=== PATIENT | female | born 1975 | race Caucasian/White ===

== ENCOUNTER → 2017-05-18 | Outpatient (CLI) | payer BC ==
[~2017-05-18] MED LIST: ALBU1AER9 INH; FLUO40CA8 PO; FLV1 PO; MIRA1TAB3 PO; MULTTAB58 PO; NAPR-1169 PO; OXYC-57 PO; OXYC1TAB3 PO; TAMS0.4C38 PO; [UNRECOGNIZED DRUG - OTHER] SC
--- NOTE | 2017-05-18 10:29 | DIAGNOSTIC IMAGING REPORT ---
KUB CLINICAL HISTORY: N20.0 Recurrent [id number] COMPARISON STUDY: 04/29/2016 FINDINGS: A stimulator device is again visualized within the left hemipelvis. There is no pathologic bowel dilatation. There is scattered stool present throughout the colon. No definite renal or ureteral calculi are visualized. IMPRESSION: No calculi are visualized on conventional radiographic imaging. Electronically signed by: Tono Owusu M.D. 05/18/2017 10:27 AM Dictated Date/Time: 05/18/2017 10:26 AM
== END | disposition home or self-care (01) ==
LOC: C.RAD 09:32
PROVIDERS: ATTEND Internal Medicine Nephrology
DX: N20.0 Calculus of kidney (principal)

== ENCOUNTER 2024-01-30 14:32 | Inpatient (IN) ==
--- NOTE | 2024-01-30 15:23 | XRay Report ---
XR chest 1V portable HISTORY: 48 years-old Female Sepsis acute sepsis COMPARISON: 04/03/2015 TECHNIQUE: AP view of the chest FINDINGS: Cardiac silhouette is enlarged. No pneumothorax or pleural effusion. The lungs appear clear. Bones ap pear intact. IMPRESSION: No acute process. ACT 112: Negative or not required by law. The above report was generated using voice recognition software. It may contain grammatical, syntax o r spelling errors. Electronically signed by: Rusty Magaña M.D. 01/30/2024 3:21 PM
--- NOTE | 2024-01-30 15:25 | Emergency Department Note ---
History of Present Illness General Chief complaint: Dehydration Stated complaint: DEHYDRATED, PAIN WHEN URINATING, LBP Time Seen by Provider: 01/30/24 14:58 History of Present Illness Provider complaint: Fever kidney stone Onset (ago): day(s) 2 Maximum Pain Intensity: 5 48-year-old female presents emergency department for fever and kidney stone. Patient reports that she was diagnosed with kidney stone 2 days ago at an outside facility. She states she was also diagnosed with a UTI. She states she is currently on Levaquin and Bactrim. She reports that she has been having increasing fever nausea. She reports increasing dysuria. Home Medications Medication Instructions Recorded Confirmed Type albuterol sulfate 90 mcg/actuation 2 puffs inhalation Q4H PRN 02/23/19 01/30/24 History aerosol inhaler Shortness Of Breath cholecalciferol (vitamin D3) 125 5,000 units PO QPM 02/23/19 01/30/24 History mcg (5,000 unit) capsule fluoxetine 40 mg capsule See Rx Instructions .Route .COMPLEX 02/23/19 01/30/24 History folic acid 800 mcg tablet 800 mcg PO QAM 02/23/19 01/30/24 History secukinumab 150 mg/mL subcutaneous 150 mg subcut MONTHLY 02/23/19 01/30/24 History syringe fluoxetine 20 mg tablet See Rx Instructions .Route .COMPLEX 01/09/22 01/30/24 History fremanezumab-vfrm 225 mg/1.5 mL 675 mg subcut UD 01/09/22 01/30/24 History subcutaneous auto-injector (Ajovy) loratadine 10 mg tablet 10 mg PO QAM 01/09/22 01/30/24 History ubrogepant 100 mg tablet (Ubrelvy) 100 mg PO UD PRN Migraine Headache 01/09/22 01/30/24 History hydroxychloroquine 200 mg tablet 200 mg PO BID 01/30/24 01/30/24 History levofloxacin 750 mg tablet 750 mg PO DAILY 01/30/24 01/30/24 History sulfamethoxazole 800 1 tab PO BID 01/30/24 01/30/24 History mg-trimethoprim 160 mg tablet tamsulosin 0.4 mg capsule 0.4 mg PO DAILY kidney stones 01/30/24 01/30/24 History Allergies Allergy/AdvReac Type Severity Reaction Status Date / Time Penicillins Allergy Intermediate HIVES Verified 01/30/24 17:04 codeine AdvReac Intermediate CHEST PAIN Verified 01/30/24 17:04 Past Med/Surg History Problem List (Updated 01/30/24 @ 21:37 by Lucas Ford MD) Prolonged QT interval (Acute) Hypomagnesemia (Acute) Hypokalemia (Acute) Hyponatremia (Acute) UTI (urinary tract infection) (Acute) Nephrolithiasis (Acute) Medical History Recurrent nephrolithiasis Chronic back pain History of MTHFR mutation Takes folic acid Temporomandibular joint disorder Was using a bite block at night, not recently Anxiety Migraine History of COVID-19 09/2021--mild symptoms, symptoms have since resolved Exercise-induced asthma Inhaler PRN Ankylosing spondylitis On Cosentyx Recurrent UTI Surgical History History of foot surgery left plantar fasciotomy History of bladder surgery bladder stimulator History of esophagogastroduodenoscopy (EGD) History of colonoscopy History of cholecystectomy History of tooth extraction History of wisdom tooth extraction History of tonsillectomy and adenoidectomy Bariatric surgery status gastric sleeve Hx of appendectomy H/O lithotripsy H/O: hysterectomy total hyster with BSO Family History Mother Kidney stones Sister Kidney stones Other No family history of adverse response to anesthesia Denies family history of Kidney disease Social History Smoking Status: Never smoker Second Hand Exposure: No; Do You Dip or Chew Tobacco: No; Hx Alcohol Use: No Hx Substance Use: No Preferred Language: Qatari Communication Ability: Effective 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 Required: No Beliefs That Will Affect Care: None Current Living Situation: Family and Significant Other Current Living Situation Comment: Lives with fiance and 3 kids current occupational status: employed 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 Feels Safe at Home: Yes Assistive Devices: Glasses Physical Exam Vital Signs Vital Signs - 24 hr 01/30/24 14:45 01/30/24 15:15 01/30/24 15:16 Temperature 38.2 C H Temperature Source Oral Pulse Rate 120 H 110 H 122 H Pulse Rhythm Respiratory Rate 18 19 Respiratory Effort / Characteristics Non-Labored Spontaneous Respiratory Depth Normal Respiratory Pattern Regular Blood Pressure 100/68 115/77 Blood Pressure Mean 78 89 Blood Pressure Position Sitting Pulse Oximetry 97 98 Oxygen Delivery Method Room Air Sepsis Recent Fever Within 48 Hours No Sepsis New/Unexplained Change in Mental Status N/A Sepsis Action Taken by Nursing No Action Required 01/30/24 15:17 01/30/24 15:21 01/30/24 15:30 Temperature 39.5 C H Temperature Source Oral Pulse Rate 99 H 108 H Pulse Rhythm Regular Respiratory Rate 20 14 Respiratory Effort / Characteristics Respiratory Depth Respiratory Pattern Blood Pressure 125/71 Blood Pressure Mean 82 Blood Pressure Position Pulse Oximetry 98 97 Oxygen Delivery Method Room Air Sepsis Recent Fever Within 48 Hours Sepsis New/Unexplained Change in Mental Status Sepsis Action Taken by Nursing 01/30/24 16:30 01/30/24 16:43 01/30/24 16:45 Temperature 37.5 C Temperature Source Oral Pulse Rate 100 H 101 H Pulse Rhythm Respiratory Rate 15 20 Respiratory Effort / Characteristics Respiratory Depth Respiratory Pattern Blood Pressure 116/66 117/70 Blood Pressure Mean 79 85 Blood Pressure Position Pulse Oximetry 98 97 Oxygen Delivery Method Room Air Sepsis Recent Fever Within 48 Hours Sepsis New/Unexplained Change in Mental Status Sepsis Action Taken by Nursing 01/30/24 16:45 01/30/24 17:15 01/30/24 17:31 Temperature Temperature Source Pulse Rate 97 H 97 H 96 H Pulse Rhythm Respiratory Rate 22 15 16 Respiratory Effort / Characteristics Respiratory Depth Respiratory Pattern Blood Pressure 117/70 103/65 117/70 Blood Pressure Mean 88 77 88 Blood Pressure Position Pulse Oximetry 98 97 98 Oxygen Delivery Method Sepsis Recent Fever Within 48 Hours Sepsis New/Unexplained Change in Mental Status Sepsis Action Taken by Nursing 01/30/24 18:01 01/30/24 18:17 Temperature Temperature Source Pulse Rate 98 H 103 H Pulse Rhythm Respiratory Rate 21 16 Respiratory Effort / Characteristics Respiratory Depth Respiratory Pattern Blood Pressure 96/65 L 117/66 Blood Pressure Mean 77 83 Blood Pressure Position Pulse Oximetry 94 97 Oxygen Delivery Method Room Air Sepsis Recent Fever Within 48 Hours Sepsis New/Unexplained Change in Mental Status Sepsis Action Taken by Nursing Physical Exam GENERAL: She is oriented to person, place, and time. She appears well-developed and well-nourished. She does not appear distressed. HENT: Exam performed. -Head: Normocephalic and atraumatic. -Right Ear: External ear normal. No mastoid erythema -Left Ear: External ear normal. No mastoid erythema -Mouth/Throat: The oropharynx is clear and moist. No trismus in the jaw. No dental abscesses or uvula swelling. No oropharyngeal exudate or tonsillar abscesses. EYES: Conjunctivae and EOM are normal.Right eye exhibits no discharge. Left eye exhibits no discharge. No scleral icterus. NECK: Normal range of motion. Neck supple. No JVD present. No tracheal deviation and normal range of motion present. CV: Tachycardic rate, regular rhythm, normal heart sounds and intact distal pulses. There is no peripheral edema. Palpable radial pulses bue. PULM/CHEST: Effort normal and breath sounds normal. No respiratory distress. No stridor. She has no wheezes. She has no rales. -Chest Wall: She exhibits no tenderness. ABD: The abdomen is soft. Bowel sounds are normal. She has no distension. No mass is present. There is no tenderness. There is no rebound, no guarding, no Gomez's sign and no tenderness at McBurney's point. Rovsig negative MUSC/SKEL: Normal range of motion. There is no peripheral edema, tenderness or deformity. NEURO: Motor and sensation grossly intact. SKIN: Skin is warm and dry. She is not diaphoretic. PSYCH: She has a normal mood and affect. Behavior is normal. Judgment and thought content normal. Course Course 1458: The patient was evaluated in room B8. A complete history and physical exam was performed Cardiac monitoring: An order was placed for continuous cardiac monitoring. The monitor shows a rate of 110 with sinus tachycardia rhythm interpreted by me Patient febrile and tachycardic. Sepsis protocols initiated. 1600: Cefepime ordered for the patient after discussion with pharmacy about which antibiotic to give the patient given her currently being on Levaquin and Bactrim. 1700:Labs show white blood cell count of 4.77. Platelet count 97. VBG within normal limits. Sodium 126. No seizure-like activity and no focal neurological deficits. Sodium repletion started with normal saline. No need for hypertonic saline at this time. Potassium 3.1. Magnesium 1.4. AST 293 ALT 210 alkaline phosphatase and bilirubin within normal limits. Procalcitonin 0.76. Urinalysis does appear infected. CT of the abdomen pelvis shows no ureteral stones. Patient will be admitted to the [facility] hospitalist team. Administered Medications Acetaminophen (Acetaminophen 325 Mg Tab) 650 mg PO Q4H PRN PRN Reason: fever Stop: 02/29/24 20:10 Last Admin: 01/30/24 20:21 Dose: 650 mg Documented By: NEREIDA Potassium Chloride/Sodium Chloride (Normal Saline W/20 Meq Kcl) 20 meq in 1,000 mls @ 100 mls/hr IV .Q10H VIRIDIANA; Protocol Stop: 02/29/24 18:29 Last Admin: 01/30/24 20:24 Dose: 100 mls/hr Documented By: NEREIDA Potassium Phosphate 30 mmol/ (Sodium Chloride) 510 mls @ 88 mls/hr IV ONE ONE Stop: 01/31/24 02:02 Last Admin: 01/30/24 21:04 Dose: 88 mls/hr Documented By: NEREIDA Vancomycin HCl 2,000 mg/ (Sodium Chloride) 540 mls @ 200 mls/hr IV NOW ONE Stop: 01/30/24 23:11 Last Admin: 01/30/24 21:04 Dose: 200 mls/hr Documented By: NEREIDA Discontinued Medications Sodium Chloride (Nss) 1,000 mls @ 999 mls/hr IV .Q1H1M VIRIDIANA Stop: 01/30/24 17:00 Last Infusion: 01/30/24 17:51 Dose: Infused Documented By: Admin: 01/30/24 16:42 Dose: 999 mls/hr Documented By: Infusion: 01/30/24 16:33 Dose: Infused Documented By: Admin: 01/30/24 15:32 Dose: 999 mls/hr Documented By: SALENA Acetaminophen (Ofirmev) 1,000 mg in 100 mls @ 400 mls/hr IV NOW STA Stop: 01/30/24 15:12 Last Infusion: 01/30/24 15:47 Dose: Infused Documented By: Admin: 01/30/24 15:32 Dose: 400 mls/hr Documented By: SALENA Cefepime HCl (Maxipime) 2,000 mg in 20 mls @ 5 mls/min IV NOW STA; Protocol Stop: 01/30/24 16:02 Last Admin: 01/30/24 16:16 Dose: 5 mls/min Documented By: SRINI Magnesium Sulfate/Dextrose (Magnesium Sulfate / D5w) 1 gm in 100 mls @ 100 mls/hr IV Q1H [facility] Stop: 01/30/24 18:40 Last Infusion: 01/30/24 18:55 Dose: Infused Documented By: Admin: 01/30/24 17:53 Dose: 100 mls/hr Documented By: Infusion: 01/30/24 17:51 Dose: Infused Documented By: Admin: 01/30/24 16:52 Dose: 100 mls/hr Documented By: SALENA Piperacillin Sod/Tazobactam (Sod 4.5 gm/ Dextrose) 100 mls @ 200 mls/hr IV NOW ONE; Protocol Stop: 01/30/24 20:29 Last Admin: 01/30/24 20:43 Dose: 200 mls/hr Documented By: NEREIDA Ondansetron HCl (Ondansetron Inj 2 Mg/Ml 2 Ml Vial) Confirm Administered Dose 4 mg .ROUTE .STK-MED ONE Stop: 01/30/24 16:22 Last Admin: 01/30/24 16:22 Dose: 4 mg Documented By: SRINI Potassium Chloride (Potassium Chloride Crtab 20 Meq Tabcr) 40 meq PO NOW STA Stop: 01/30/24 17:43 Last Admin: 01/30/24 18:50 Dose: Not Given Documented By: NEREIDA Medical Decision Making Laboratory Data Attestation: I reviewed the patient's lab results. 01/30/24 15:08 01/30/24 15:08 Lab Results 01/30/24 01/30/24 01/30/24 Range/Units 15:05 15:08 15:22 WBC 4.77 L (4.8-10.8) K/ul RBC 4.94 (4.20-5.40) M/uL Hgb 13.2 (12.0-16.0) g/dl Hct 39.7 (37.0-47.0) % MCV 80.4 (80.0-100.0) fL MCH 26.7 (25.0-34.0) pg MCHC 33.2 (32.0-36.0) g/dL RDW Std Deviation 37.9 (36.4-46.3) fL RDW Coeff of Evangelina 13.1 (11.5-14.5) % Plt Count 97 L (130-400) K/uL MPV 11.1 (9.4-12.4) fL Immature Gran % (Auto) 0.4 % Neut % (Auto) 85.7 % Lymph % (Auto) 7.8 % [place] % (Auto) 4.4 % Eos % (Auto) 1.5 % Baso % (Auto) 0.2 % Neut # (Auto) 4.09 (1.40-6.50) K/uL Lymph # (Auto) 0.37 L (1.20-3.40) K/uL [place] # (Auto) 0.21 (0.11-0.59) K/uL Eos # (Auto) 0.07 (0.00-0.50) K/uL Baso # (Auto) 0.01 (0.00-0.20) K/uL Immature Gran # (Auto) 0.02 (0.01-0.20) K/uL Platelet Estimate Decreased L (Normal) PT 11.6 (9.0-12.0) Seconds INR 1.1 (0.9-1.1) APTT 29 (21-31) Seconds PTT Ratio 1.1 VBG pH (7.36-7.41) VBG pCO2 (38-50) mmHg VBG pO2 mmHg VBG HCO3 mmol/L VBG O2 Saturation % VBG Base Excess mEq/L Sodium 126 L (136-145) mmol/L Potassium 3.1 L (3.5-5.1) mmol/L Chloride 92 L (98-107) mmol/L Carbon Dioxide 26 (21-32) mmol/L Anion Gap 8 (3-11) BUN 14 (6-23) mg/dl Creatinine 1.08 (0.6-1.2) mg/dl Est Cr Clr Drug Dosing 80.5 ml/min Est GFR ( Amer) 70.3 ml/min Est GFR (Non-Af Amer) 60.7 ml/min BUN/Creatinine Ratio 13.0 (10-20) Glucose 117 H (70-99(Fasting)) mg/dl Lactate 2.0 (0.4-2.0) mmol/L Calcium 8.8 (8.6-10.3) mg/dl Phosphorus 1.3 L* (2.5-4.9) mg/dl Magnesium 1.4 L (1.7-2.4) mg/dl Total Bilirubin 0.5 (0.2-1.0) mg/dl Direct Bilirubin 0.1 (0-0.2) mg/dl AST 293 H (13-39) U/L ALT 210 H (7-52) U/L Alkaline Phosphatase 90 (34-104) U/L Troponin I High Sens 10.1 (0-14) pg/ml Total Protein 6.8 (6.0-8.3) gm/dl Albumin 3.7 (3.4-5.0) gm/dl Lipase 10 L (11-82) U/L Procalcitonin 0.76 H (0-0.5) ng/ml Urine Color Dark Yellow Urine Appearance Cloudy A (Clear) Urine pH 6.5 (4.5-7.5) Ur Specific [place] 1.032 H (1.000-1.030) Urine Protein 2+ H (Negative) Urine Glucose (UA) Negative (Negative) Urine Ketones Trace H (Negative) Urine Blood 1+ H (Negative) Urine Nitrite Negative (Negative) Urine Bilirubin 1+ H (Negative) Urine Urobilinogen Negative (Negative) Ur Leukocyte Esterase 2+ H (Negative) Urine WBC (Auto) >50 H (0-5) /hpf Urine RBC (Auto) 11-20 H (0-2) /hpf U Hyaline Cast (Auto) 11-20 H (0-2) /lpf U Epithel Cells (Auto) 6-10 H (0-2) /hpf Urine Bacteria (Auto) 1+ H (None Seen) Urine Mucus Present A (None Prsent) SARS-CoV-2 (PCR) NEGATIVE (Negative) Influenza Type A (PCR) Negative (Neg) Influenza Type B (PCR) Negative (Neg) RSV (RT-PCR) Negative (Neg) 01/30/24 Range/Units 18:00 WBC (4.8-10.8) K/ul RBC (4.20-5.40) M/uL Hgb (12.0-16.0) g/dl Hct (37.0-47.0) % MCV (80.0-100.0) fL MCH (25.0-34.0) pg MCHC (32.0-36.0) g/dL RDW Std Deviation (36.4-46.3) fL RDW Coeff of Evangelina (11.5-14.5) % Plt Count (130-400) K/uL MPV (9.4-12.4) fL Immature Gran % (Auto) % Neut % (Auto) % Lymph % (Auto) % [place] % (Auto) % Eos % (Auto) % Baso % (Auto) % Neut # (Auto) (1.40-6.50) K/uL Lymph # (Auto) (1.20-3.40) K/uL [place] # (Auto) (0.11-0.59) K/uL Eos # (Auto) (0.00-0.50) K/uL Baso # (Auto) (0.00-0.20) K/uL Immature Gran # (Auto) (0.01-0.20) K/uL Platelet Estimate (Normal) PT (9.0-12.0) Seconds INR (0.9-1.1) APTT (21-31) Seconds PTT Ratio VBG pH 7.35 L (7.36-7.41) VBG pCO2 43 (38-50) mmHg VBG pO2 36 mmHg VBG HCO3 24 mmol/L VBG O2 Saturation 67.3 % VBG Base Excess -2.0 mEq/L Sodium (136-145) mmol/L Potassium (3.5-5.1) mmol/L Chloride (98-107) mmol/L Carbon Dioxide (21-32) mmol/L Anion Gap (3-11) BUN (6-23) mg/dl Creatinine (0.6-1.2) mg/dl Est Cr Clr Drug Dosing ml/min Est GFR ( Amer) ml/min Est GFR (Non-Af Amer) ml/min BUN/Creatinine Ratio (10-20) Glucose (70-99(Fasting)) mg/dl Lactate (0.4-2.0) mmol/L Calcium (8.6-10.3) mg/dl Phosphorus (2.5-4.9) mg/dl Magnesium (1.7-2.4) mg/dl Total Bilirubin (0.2-1.0) mg/dl Direct Bilirubin (0-0.2) mg/dl AST (13-39) U/L ALT (7-52) U/L Alkaline Phosphatase (34-104) U/L Troponin I High Sens (0-14) pg/ml Total Protein (6.0-8.3) gm/dl Albumin (3.4-5.0) gm/dl Lipase (11-82) U/L Procalcitonin (0-0.5) ng/ml Urine Color Urine Appearance (Clear) Urine pH (4.5-7.5) Ur Specific [place] (1.000-1.030) Urine Protein (Negative) Urine Glucose (UA) (Negative) Urine Ketones (Negative) Urine Blood (Negative) Urine Nitrite (Negative) Urine Bilirubin (Negative) Urine Urobilinogen (Negative) Ur Leukocyte Esterase (Negative) Urine WBC (Auto) (0-5) /hpf Urine RBC (Auto) (0-2) /hpf U Hyaline Cast (Auto) (0-2) /lpf U Epithel Cells (Auto) (0-2) /hpf Urine Bacteria (Auto) (None Seen) Urine Mucus (None Prsent) SARS-CoV-2 (PCR) (Negative) Influenza Type A (PCR) (Neg) Influenza Type B (PCR) (Neg) RSV (RT-PCR) (Neg) Imaging Data Attestation: I personally reviewed and interpreted this imaging study as follows: My Impression: Chest x-ray negative. Airway clear. No pneumothorax. No consolidation. No cardiomegaly or cephalization.. No free air under the diaphragm. No fractures of the skeletal structures. Radiologist's Impression: Chest X-Ray 01/30/24 14:59 XR chest 1V portable HISTORY: 48 years-old Female Sepsis acute sepsis COMPARISON: 04/03/2015 TECHNIQUE: AP view of the chest FINDINGS: Cardiac silhouette is enlarged. No pneumothorax or pleural effusion. The lungs appear clear. Bones appear intact. IMPRESSION: No acute process. ACT 112: Negative or not required by law. The above report was generated using voice recognition software. It may contain grammatical, syntax or spelling errors. Electronically signed by: Rusty Magaña M.D. 01/30/2024 3:21 PM Abdomen/Pelvis CT 01/30/24 15:[address] WITHOUT CONTRAST HISTORY: Acute fever with bilateral flank pain fever dysuria kidney stone TECHNIQUE: Multiaxial CT images of the abdomen and pelvis were performed without contrast. A dose lowering technique was utilized adhering to the principles of ALARA. COMPARISON STUDY: Outside hospital CT 12/26/2021 FINDINGS: Mild subsegmental bibasilar groundglass densities are likely atelectatic. No free air. The unenhanced spleen measures 13.6 cm. Hepatic steatosis. No evidence of cirrhosis or suspicious mass. 3.7 cm cyst of the inferior right hepatic lobe. Cholecystectomy with likely postsurgical biliary ductal dilation. There is increased attenuation of the medullary pyramids. There are a few nonobstructing calculi in the kidneys measuring up to 4 mm bilaterally. No ureteral calculi or hydronephrosis. Decompressed bladder with wall thickening. Hysterectomy. No abdominal aortic aneurysm or lymphadenopathy. Small hiatal hernia. Operative changes of the stomach. No bowel obstruction or bowel wall thickening. No CT evidence of acute appendicitis. No acute fracture. IMPRESSION: 1. 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 2. No ureteral calculi or hydronephrosis. 3. No bowel obstruction or bowel wall thickening. 4. Additional incidental findings as above. ACT 112: Negative or not required by law. The above report was generated using voice recognition software. It may contain grammatical, syntax or spelling errors. Electronically signed by: Rusty Magaña M.D. 01/30/2024 4:[address] 01/30/24 15:05 CT head/brain wo con CLINICAL HISTORY: 48 years-old Female with weakness. Acute weakness TECHNIQUE: Multiple axial CT images of the head were obtained without contrast. A dose lowering technique was utilized adhering to the principles of ALARA. CT DOSE: 2111.96 mGy.cm COMPARISON: None. FINDINGS: No acute intracranial hemorrhage, midline shift, intracranial mass, hydrocephalus, territorial ischemia or abnormal extra-axial collection. The calvarium is intact. The paranasal sinuses, mastoid air cells, and middle ear cavities are clear. IMPRESSION: No acute intracranial abnormality or calvarial fracture. ACT 112: Negative or not required by law. The above report was generated using voice recognition software. It may contain grammatical, syntax or spelling errors. Electronically signed by: Rusty Magaña M.D. 01/30/2024 4:23 PM ECG Data Attestation: I personally reviewed and interpreted this ECG as follows: Additional Comments: EKG #1 at 1527: Sinus rhythm with a rate of 112. [place] 126 QRS [address] elevation or ST depression. EKG #2 at 1645: Sinus rhythm with a rate of 98. [place] 92 QRS [address] elevation or ST depression. [facility] Narrative 1458: The patient was evaluated in room B8. A complete history and physical exam was performed Cardiac monitoring: An order was placed for continuous cardiac monitoring. The monitor shows a rate of 110 with sinus tachycardia rhythm interpreted by me Patient febrile and tachycardic. Sepsis protocols initiated. 1600: Cefepime ordered for the patient after discussion with pharmacy about which antibiotic to give the patient given her currently being on Levaquin and Bactrim. 1700:Labs show white blood cell count of 4.77. Platelet count 97. VBG within normal limits. Sodium 126. No seizure-like activity and no focal neurological deficits. Sodium repletion started with normal saline. No need for hypertonic saline at this time. Potassium 3.1. Magnesium 1.4. AST 293 ALT 210 alkaline phosphatase and bilirubin within normal limits. Procalcitonin 0.76. Urinalysis does appear infected. CT of the abdomen pelvis shows no ureteral stones. Patient will be admitted to the [facility]ist team. Impression & Plan Hyponatremia, Nephrolithiasis, UTI (urinary tract infection), Hypokalemia, Hypomagnesemia, Prolonged QT interval Discharge Plan Visit Data Chief Complaint: Dehydration Stated Complaint: DEHYDRATED, PAIN WHEN URINATING, LBP ED Provider: Lucas Ford Discharge Problem: Hyponatremia, Nephrolithiasis, UTI (urinary tract infection), Hypokalemia, Hypomagnesemia, Prolonged QT interval Patient Disposition: Admitted As Inpatient Discharge Instructions Interventions: ED Discharge Assessment Last Done: 01/30/24 21:28
[2024-01-30] MEDS: SODIUM CHLORIDE 0.9% 1,000 ML IV SCH (15:32)
[2024-01-30] MEDS: ACETAMINOPHEN 1,000 MG/100 ML VIAL IV STA (15:32)
[2024-01-30 15:47] LABS: Albumin Level 3.7 gm/dl (3.4-5.0); Bilirubin Direct 0.1 mg/dl (0-0.2); Bilirubin,Total 0.5 mg/dl (0.2-1.0); Calcium 8.8 mg/dl (8.6-10.3); Creatinine Clr Calc Pharmacy 80.5 ml/min; Est GFR (African American) 70.3 ml/min; Est GFR (Non-African American) 60.7 ml/min; Magnesium 1.4 mg/dl (1.7-2.4); Potassium 3.1 mmol/L (3.5-5.1); Total Protein 6.8 gm/dl (6.0-8.3)
[2024-01-30 15:51] LABS: Appearance Urine Cloudy (Clear); Bacteria Urine Automated 1+ (None Seen); Bilirubin Urine 1+ (Negative); Blood Urine 1+ (Negative); Color Urine Dark Yellow; Glucose Urine UA Negative (Negative); Ketones Urine Trace (Negative); Leukocyte Esterase Urine 2+ (Negative); Mucus Urine Present (None Prsent); Nitrite Urine Negative (Negative); Protein Urine 2+ (Negative); Specific Gravity Urine 1.032 (1.000-1.030); Urobilinogen Urine Negative (Negative); WBC Urine Automated >50 /hpf (0-5); pH Urine 6.5 (4.5-7.5)
[2024-01-30 15:53] LABS: Troponin I High Sensitivity 10.1 pg/ml (0-14)
[2024-01-30 15:57] LABS: INR 1.1 (0.9-1.1); Partial Thromboplastin Ratio 1.1; Partial Thromboplastin Time 29 Seconds (21-31); Prothrombin Time 11.6 Seconds (9.0-12.0)
[2024-01-30 16:04] LABS: Basophils # (auto) 0.01 K/uL (0.00-0.20); Basophils % (auto) 0.2 %; Eosinophils # (auto) 0.07 K/uL (0.00-0.50); Eosinophils % (auto) 1.5 %; Hematocrit (blood only) 39.7 % (37.0-47.0); Hemoglobin 13.2 g/dl (12.0-16.0); Immature Granulocytes # (auto) 0.02 K/uL (0.01-0.20); Immature Granulocytes % (auto) 0.4 %; Lymphocytes # (auto) 0.37 K/uL (1.20-3.40); Lymphocytes % (auto) 7.8 %; Mean Corpuscular Hemoglobin 26.7 pg (25.0-34.0); Mean Corpuscular Hgb Conc 33.2 g/dL (32.0-36.0); Mean Corpuscular Volume 80.4 fL (80.0-100.0); Mean Platelet Volume 11.1 fL (9.4-12.4); Monocytes # (auto) 0.21 K/uL (0.11-0.59); Monocytes % (auto) 4.4 %; Neutrophils # (auto) 4.09 K/uL (1.40-6.50); Neutrophils % (auto) 85.7 %; Platelet Count 97 K/uL (130-400); Platelet Estimate Decreased (Normal); RDW Coefficient of Variation 13.1 % (11.5-14.5); RDW Standard Deviation 37.9 fL (36.4-46.3); Red Blood Count 4.94 M/uL (4.20-5.40); White Blood Count 4.77 K/ul (4.8-10.8)
[2024-01-30] MEDS: CEFEPIME 2,000 MG/20 ML VIAL IV STA (16:16)
[2024-01-30] MEDS: ONDANSETRON INJ 2 MG/ML 2 ML VIAL ONE (16:22)
--- NOTE | 2024-01-30 16:24 | CT Scan Report ---
CT head/brain wo con CLINICAL HISTORY: 48 years-old Female with weakness. Acute weakness TECHNIQUE: Multiple axial CT images of the head were obtained without contrast. A dose lowering tech nique was utilized adhering to the principles of ALARA. CT DOSE: 2111.96 mGy.cm COMPARISON: None. FINDINGS: No acute intracranial hemorrhage, midline shift, intracranial mass, hydrocephalus, territorial ischem ia or abnormal extra-axial collection. The calvarium is intact. The paranasal sinuses, mastoid air cells, and middle ear cavities are clear . IMPRESSION: No acute intracranial abnormality or calvarial fracture. ACT 112: Negative or not required by law. The above report was generated using voice recognition software. It may contain grammatical, syntax o r spelling errors. Electronically signed by: Rusty Magaña M.D. 01/30/2024 4:23 PM
[2024-01-30 16:28] LABS: Influenza A virus by PCR Negative (Neg); Influenza B virus by PCR Negative (Neg); RSV by PCR Negative (Neg); SARS CoV2 RNA(COVID-19) Ceph NEGATIVE (Negative)
--- NOTE | 2024-01-30 16:38 | CT Scan Report ---
ABDOMEN AND PELVIS CT WITHOUT CONTRAST HISTORY: Acute fever with bilateral flank pain fever dysuria kidney stone TECHNIQUE: Multiaxial CT images of the abdomen and pelvis were performed without contrast. A dose lo wering technique was utilized adhering to the principles of ALARA. COMPARISON STUDY: Outside hospital CT 12/26/2021 FINDINGS: Mild subsegmental bibasilar groundglass densities are likely atelectatic. No free air. The unenhanced spleen measures 13.6 cm. Hepatic steatosis. No evidence of cirrhosis or suspicious mass. 3 .7 cm cyst of the inferior right hepatic lobe. Cholecystectomy with likely postsurgical biliary ducta l dilation. There is increased attenuation of the medullary pyramids. There are a few nonobstructing calculi in t he kidneys measuring up to 4 mm bilaterally. No ureteral calculi or hydronephrosis. Decompressed blad mariama with wall thickening. Hysterectomy. No abdominal aortic aneurysm or lymphadenopathy. Small hiatal hernia. Operative changes of the stomach. No bowel obstruction or bowel wall thickening. No CT evidence of acute appendicitis. No acute fracture. IMPRESSION: 1. 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 2. No ureteral calculi or hydronephrosis. 3. No bowel obstruction or bowel wall thickening. 4. Additional incidental findings as above. ACT 112: Negative or not required by law. The above report was generated using voice recognition software. It may contain grammatical, syntax o r spelling errors. Electronically signed by: Rusty Magaña M.D. 01/30/2024 4:35 PM
[2024-01-30] MEDS: MAGNESIUM SULFATE / D5W 1 GM/100 ML BAG IV SCH ×2 (16:52→22:20)
--- NOTE | 2024-01-30 17:11 | History & Physical Report ---
Date of Service January 30, 2024 History of Present Illness Primary Care Provider: Molly Krishna Ms. Hawley presents to the ED with complains of fever and dysuria. Patient was seen at [facility] and diagnosed with a UTI and started on Levaquin and Bactrim and released from the ED. Additional PMH includes: HTN, depression. Here today in the ED, no leukocytosis, hyponatremic 126, hypokalemic 3.1, hypomag 1.4. lactate borderline elevated at 2.0. LFTs elevated from chronic alcohol use AST 293, ALT 210. Procalcitonin 0.76. Patient denies LOMBARDO, dizziness, SOB, chest pain, dizziness, palpitations, N/V/D, recent falls or trauma. Patient will be admitted for further evaluation and management. Please see A?P for further details. Allergies Allergy/AdvReac Type Severity Reaction Status Date / Time Penicillins Allergy Intermediate HIVES Verified 01/30/24 17:04 codeine AdvReac Intermediate CHEST PAIN Verified 01/30/24 17:04 Home Medications Medication Instructions Recorded Confirmed Type albuterol sulfate 90 mcg/actuation 2 puffs inhalation Q4H PRN 02/23/19 01/30/24 History aerosol inhaler Shortness Of Breath cholecalciferol (vitamin D3) 125 5,000 units PO QPM 02/23/19 01/30/24 History mcg (5,000 unit) capsule fluoxetine 40 mg capsule See Rx Instructions .Route .COMPLEX 02/23/19 01/30/24 History folic acid 800 mcg tablet 800 mcg PO QAM 02/23/19 01/30/24 History secukinumab 150 mg/mL subcutaneous 150 mg subcut MONTHLY 02/23/19 01/30/24 History syringe fluoxetine 20 mg tablet See Rx Instructions .Route .COMPLEX 01/09/22 01/30/24 History fremanezumab-vfrm 225 mg/1.5 mL 675 mg subcut UD 01/09/22 01/30/24 History subcutaneous auto-injector (Ajovy) loratadine 10 mg tablet 10 mg PO QAM 01/09/22 01/30/24 History ubrogepant 100 mg tablet (Ubrelvy) 100 mg PO UD PRN Migraine Headache 01/09/22 01/30/24 History hydroxychloroquine 200 mg tablet 200 mg PO BID 01/30/24 01/30/24 History levofloxacin 750 mg tablet 750 mg PO DAILY 01/30/24 01/30/24 History sulfamethoxazole 800 1 tab PO BID 01/30/24 01/30/24 History mg-trimethoprim 160 mg tablet tamsulosin 0.4 mg capsule 0.4 mg PO DAILY kidney stones 01/30/24 01/30/24 History Past Med/Surg History Problem List (Updated 01/30/24 @ 17:42 by Tae Ellison MD) Hypomagnesemia Hypokalemia Hyponatremia UTI (urinary tract infection) Nephrolithiasis Medical History Recurrent nephrolithiasis Chronic back pain History of MTHFR mutation Takes folic acid Temporomandibular joint disorder Was using a bite block at night, not recently Anxiety Migraine History of COVID-19 09/2021--mild symptoms, symptoms have since resolved Exercise-induced asthma Inhaler PRN Ankylosing spondylitis On Cosentyx Recurrent UTI Surgical History History of foot surgery left plantar fasciotomy History of bladder surgery bladder stimulator History of esophagogastroduodenoscopy (EGD) History of colonoscopy History of cholecystectomy History of tooth extraction History of wisdom tooth extraction History of tonsillectomy and adenoidectomy Bariatric surgery status gastric sleeve Hx of appendectomy H/O lithotripsy H/O: hysterectomy total hyster with BSO Family History Mother Kidney stones Sister Kidney stones Other No family history of adverse response to anesthesia Denies family history of Kidney disease Social History Smoking Status: Never smoker Second Hand Exposure: No; Do You Dip or Chew Tobacco: No; Hx Alcohol Use: No Hx Substance Use: No Preferred Language: Ukrainian Communication Ability: Effective Fire Technician Required: No Beliefs That Will Affect Care: None Current Living Situation: Family and Significant Other Current Living Situation Comment: Lives with fiance and 3 kids current occupational status: employed 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
--- NOTE | 2024-01-30 17:43 | History & Physical Report ---
Date of Service January 30, 2024 Assessment & Plan (1) UTI (urinary tract infection): (2) Hyponatremia: (3) Hypomagnesemia: (4) Hypokalemia: (5) Nephrolithiasis: (6) Ankylosing spondylitis: Admission and Anticipated Discharge Date Admission Date: 48 year old female with h/o ankylosing spondylitis who presented to the ED with ongoing symptoms of fever, N/V, dysuria for past 12 days. Recently completed course of cipro for a week followed by levaquin and bactrim for past [address] A/P 1. 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 2. No ureteral calculi or hydronephrosis. 3. No bowel obstruction or bowel wall thickening. 4. Additional incidental findings as above. UTI r/o bacteremia r/o infected stones- Ongoing symptoms for past 12 days despit e course of antibiotics and evaluated at outside hospital. Chart says penicillin allergy but she says she gets amoxicillin regularly for dental work last used 6 months back. UA s/o UTI, procal 0.76, CT A/P with non obstructing stones. Will start on zosyn pending final culture results. States this is her first UTI although she had 30+ stones and required lithotripsy x2 in the past. Follow blood and urine clx results. Denies h/o MRSA. If continues to have fever or hypotension, add vancomycin. Might need ID eval. N/V- in setting of above. IVF, antiemetics prn, clear liquid diet- advance as tolerated Transaminitis- ?in setting of above- recheck in am Hypokalemia- repleted, recheck in am Hyponatremia- on IVF. Recheck later tonight at 10 pm to ensure correcting in appropriate direction Hypomagnesemia- repleted, recheck in am Hypophosphatemia- labs pending Thrombocytopenia- recheck in am Renal stones- OP follow up with urology Ankylosing spondylitis- on hydroxychloroquine, secukinumab, folic acid. Hold in setting of infection. DVT ppx- sc lovenox Dispo- Medsurg tele Updated at bedside Time spent- approx 76 mins History of Present Illness Chief Complaint: fever, N/V, dysuria Primary Care Provider: Molly Krishna 48 year old female with h/o ankylosing spondylitis who presented to the ED with ongoing symptoms of fever, N/V, dysuria for past 12 days. 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 States the Thursday prior, she had dysuria for which her colleague prescribed her cipro which she took for 7 days but she continued to have dysuria with intermittent fever, chills and N/V. She went to [facility] ER 2 days back where she was sent home with Levaquin and Bactrim, which did not help her symptoms and she presented to our ED today. States no IV antibiotics were given there and no blood or urine cultures were sent. In the ED, she was febrile to 39.5 but vitals otherwise stable. Procal 0.76. UA suggestive of UTI. Labs with multiple electrolyte abnormalities. CT with non obstructing bilateral nephrolithiasis. She was given IVF and cefepime and hospitalist service consulted for further management. She was sitting comfortably in bed during my encounter, somewhat sick. She was given po potassium for hypokalemia but she threw up. She does not smoke or drink alcohol. States she is fine with penicillins. She takes amoxicillin for dental prophylaxis, last used 6 months back and without any issues. Allergies Allergy/AdvReac Type Severity Reaction Status Date / Time Penicillins Allergy Intermediate HIVES Verified 01/30/24 17:04 codeine AdvReac Intermediate CHEST PAIN Verified 01/30/24 17:04 Home Medications Medication Instructions Recorded Confirmed Type albuterol sulfate 90 mcg/actuation 2 puffs inhalation Q4H PRN 02/23/19 01/30/24 History aerosol inhaler Shortness Of Breath cholecalciferol (vitamin D3) 125 5,000 units PO QPM 02/23/19 01/30/24 History mcg (5,000 unit) capsule fluoxetine 40 mg capsule See Rx Instructions .Route .COMPLEX 02/23/19 01/30/24 History folic acid 800 mcg tablet 800 mcg PO QAM 02/23/19 01/30/24 History secukinumab 150 mg/mL subcutaneous 150 mg subcut MONTHLY 02/23/19 01/30/24 History syringe fluoxetine 20 mg tablet See Rx Instructions .Route .COMPLEX 01/09/22 01/30/24 History fremanezumab-vfrm 225 mg/1.5 mL 675 mg subcut UD 01/09/22 01/30/24 History subcutaneous auto-injector (Ajovy) loratadine 10 mg tablet 10 mg PO QAM 01/09/22 01/30/24 History ubrogepant 100 mg tablet (Ubrelvy) 100 mg PO UD PRN Migraine Headache 01/09/22 01/30/24 History hydroxychloroquine 200 mg tablet 200 mg PO BID 01/30/24 01/30/24 History levofloxacin 750 mg tablet 750 mg PO DAILY 01/30/24 01/30/24 History sulfamethoxazole 800 1 tab PO BID 01/30/24 01/30/24 History mg-trimethoprim 160 mg tablet tamsulosin 0.4 mg capsule 0.4 mg PO DAILY kidney stones 01/30/24 01/30/24 History Past Med/Surg History Problem List Hypomagnesemia Hypokalemia Hyponatremia UTI (urinary tract infection) Nephrolithiasis Medical History Recurrent nephrolithiasis Chronic back pain History of MTHFR mutation Takes folic acid Temporomandibular joint disorder Was using a bite block at night, not recently Anxiety Migraine History of COVID-19 09/2021--mild symptoms, symptoms have since resolved Exercise-induced asthma Inhaler PRN Ankylosing spondylitis On Cosentyx Recurrent UTI Surgical History History of foot surgery left plantar fasciotomy History of bladder surgery bladder stimulator History of esophagogastroduodenoscopy (EGD) History of colonoscopy History of cholecystectomy History of tooth extraction History of wisdom tooth extraction History of tonsillectomy and adenoidectomy Bariatric surgery status gastric sleeve Hx of appendectomy H/O lithotripsy H/O: hysterectomy total hyster with BSO Family History Mother Kidney stones Sister Kidney stones Other No family history of adverse response to anesthesia Denies family history of Kidney disease Social History Smoking Status: Never smoker Second Hand Exposure: No; Do You Dip or Chew Tobacco: No; Hx Alcohol Use: No Hx Substance Use: No Preferred Language: Syrian Communication Ability: Effective Clinical Molecular Geneticist Required: No Beliefs That Will Affect Care: None Current Living Situation: Family and Significant Other Current Living Situation Comment: Lives with fiance and 3 kids current occupational status: employed 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 Feels Safe at Home: Yes Assistive Devices: Glasses Review of Systems Review of Systems: All systems reviewed & are unremarkable except as noted in Subjective Physical Exam Physical Exam: General: Sitting comfortably in bed, not in distress, on room air HEENT: EOMI, TRACEY, MMM Chest: Clear breath sounds bilaterally, no wheezes or crackles CVS: Regular rate and rhythm, normal heart sounds, no murmur Abdomen: Soft, non tender, not distended, normal bowel sounds Neuro: Awake, alert, oriented, conversing well, non focal Extremities: No cyanosis, clubbing or edema No CVA tenderness Results & Data Results & Data Vital Signs (Past 12 Hours) Vital Signs Temp Pulse Resp BP Pulse Ox O2 Del Method 01/30/24 17:15 97 H 15 103/65 97 01/30/24 16:45 97 H 22 117/70 98 01/30/24 16:45 101 H 20 117/70 97 Room Air 01/30/24 16:43 37.5 C 01/30/24 16:30 100 H 15 116/66 98 01/30/24 15:30 108 H 14 125/71 97 01/30/24 15:21 39.5 C H 01/30/24 15:17 99 H 20 98 Room Air 01/30/24 15:16 122 H 01/30/24 15:15 110 H 19 115/77 98 01/30/24 14:45 38.2 C H 120 H 18 100/68 97 Room Air Laboratory Results Short CBC 01/30/24 Range/Units 15:08 WBC 4.77 L (4.8-10.8) K/ul Hgb 13.2 (12.0-16.0) g/dl Hct 39.7 (37.0-47.0) % Plt Count 97 L (130-400) K/uL BMP 01/30/24 15:08 Sodium 126 L Potassium 3.1 L Chloride 92 L Carbon Dioxide 26 BUN 14 Creatinine 1.08 Glucose 117 H Calcium 8.8 Liver Function 01/30/24 Range/Units 15:08 Total Bilirubin 0.5 (0.2-1.0) mg/dl Direct Bilirubin 0.1 (0-0.2) mg/dl AST 293 H (13-39) U/L ALT 210 H (7-52) U/L Alkaline Phosphatase 90 (34-104) U/L Albumin 3.7 (3.4-5.0) gm/dl Urine 01/30/24 Range/Units 15:05 Urine Color Dark Yellow Urine Appearance Cloudy A (Clear) Urine pH 6.5 (4.5-7.5) Ur Specific [place] 1.032 H (1.000-1.030) Urine Protein 2+ H (Negative) Urine Glucose (UA) Negative (Negative) Diagnostic Findings Chest X-Ray 01/30/24 14:59 XR chest 1V portable HISTORY: 48 years-old Female Sepsis acute sepsis COMPARISON: 04/03/2015 TECHNIQUE: AP view of the chest FINDINGS: Cardiac silhouette is enlarged. No pneumothorax or pleural effusion. The lungs appear clear. Bones appear intact. IMPRESSION: No acute process. ACT 112: Negative or not required by law. The above report was generated using voice recognition software. It may contain grammatical, syntax or spelling errors. Electronically signed by: Rusty Magaña M.D. 01/30/2024 3:21 PM Abdomen/Pelvis CT 01/30/24 15:[address] WITHOUT CONTRAST HISTORY: Acute fever with bilateral flank pain fever dysuria kidney stone TECHNIQUE: Multiaxial CT images of the abdomen and pelvis were performed without contrast. A dose lowering technique was utilized adhering to the principles of ALARA. COMPARISON STUDY: Outside hospital CT 12/26/2021 FINDINGS: Mild subsegmental bibasilar groundglass densities are likely atelectatic. No free air. The unenhanced spleen measures 13.6 cm. Hepatic steatosis. No evidence of cirrhosis or suspicious mass. 3.7 cm cyst of the inferior right hepatic lobe. Cholecystectomy with likely postsurgical biliary ductal dilation. There is increased attenuation of the medullary pyramids. There are a few nonobstructing calculi in the kidneys measuring up to 4 mm bilaterally. No ureteral calculi or hydronephrosis. Decompressed bladder with wall thickening. Hysterectomy. No abdominal aortic aneurysm or lymphadenopathy. Small hiatal hernia. Operative changes of the stomach. No bowel obstruction or bowel wall thickening. No CT evidence of acute appendicitis. No acute fracture. IMPRESSION: 1. 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 2. No ureteral calculi or hydronephrosis. 3. No bowel obstruction or bowel wall thickening. 4. Additional incidental findings as above. ACT 112: Negative or not required by law. The above report was generated using voice recognition software. It may contain grammatical, syntax or spelling errors. Electronically signed by: Rusty Magaña M.D. 01/30/2024 4:[address] 01/30/24 15:05 CT head/brain wo con CLINICAL HISTORY: 48 years-old Female with weakness. Acute weakness TECHNIQUE: Multiple axial CT images of the head were obtained without contrast. A dose lowering technique was utilized adhering to the principles of ALARA. CT DOSE: 2111.96 mGy.cm COMPARISON: None. FINDINGS: No acute intracranial hemorrhage, midline shift, intracranial mass, hydrocephalus, territorial ischemia or abnormal extra-axial collection. The calvarium is intact. The paranasal sinuses, mastoid air cells, and middle ear cavities are clear. IMPRESSION: No acute intracranial abnormality or calvarial fracture. ACT 112: Negative or not required by law. The above report was generated using voice recognition software. It may contain grammatical, syntax or spelling errors. Electronically signed by: Rusty Magaña M.D. 01/30/2024 4:23 PM
[2024-01-30] MEDS: POTASSIUM CHLORIDE CRTAB 20 MEQ TABCR PO STA (18:03)
[2024-01-30 18:08] LABS: HCO3 VBG 24 mmol/L; Oxygen Saturation VBG 67.3 %; PCO2 VBG 43 mmHg (38-50); PO2 VBG 36 mmHg; pH VBG 7.35 (7.36-7.41)
[2024-01-30] MEDS ORDERED: POTASSIUM PHOS 3 MMOL/1 ML INFUSION IV STA (20:10)
[2024-01-30 20:11] LABS: Phosphorus 1.3 mg/dl (2.5-4.9)
[2024-01-30] MEDS ORDERED: VANCOMYCIN CONSULT ACTIVE PRN (20:12)
[2024-01-30] MEDS ORDERED: VANCOMYCIN HCL 1,000 MG in SODIUM CHLORIDE 0.9% 250 ML IV SCH (20:15)
[2024-01-30] MEDS: ACETAMINOPHEN 325 MG TAB PO PRN (20:21)
[2024-01-30] MEDS: NSS + 20MEQ KCL 20 MEQ/1,000 ML BAG IV SCH (20:24)
[2024-01-30] MEDS: PIPER/TAZO 4.5g in D5W MINI-B 100 ML IV ONE (20:43)
[2024-01-30] MEDS: POTASSIUM PHOSPHATE 30 MMOL in SODIUM CHLORIDE 0.9% 500 ML IV ONE (21:04)
[2024-01-30] MEDS: VANCOMYCIN HCL 2,000 MG in SODIUM CHLORIDE 0.9% 500 ML IV ONE (21:04)
[2024-01-30] MEDS ORDERED: ALBUTEROL HFA 8 GM INHALER INH PRN (21:28)
[2024-01-30] MEDS ORDERED: NON-FORMULARY MEDICATION (Fluoxetine 20 mg Tablet) SCH (21:28)
[2024-01-30] MEDS: IBUPROFEN 200 MG TAB PO STA (21:33)
[2024-01-30 23:27] LABS: Calcium 7.3 mg/dl (8.6-10.3); Creatinine Clr Calc Pharmacy 95.5 ml/min; Est GFR (African American) 86.5 ml/min; Est GFR (Non-African American) 74.6 ml/min; Potassium 3.4 mmol/L (3.5-5.1)
[2024-01-31] MEDS: ALBUMIN 25% 25 GM/100 ML VIAL IV ONE ×2 (02:22→04:27)
[2024-01-31 02:31] LABS: Hematocrit (blood only) 32.4 % (37.0-47.0); Mean Corpuscular Hemoglobin 27.6 pg (25.0-34.0); Mean Corpuscular Volume 81.2 fL (80.0-100.0); Mean Platelet Volume 10.9 fL (9.4-12.4); Platelet Count 88 K/uL (130-400); RDW Coefficient of Variation 13.2 % (11.5-14.5); RDW Standard Deviation 39.1 fL (36.4-46.3); Red Blood Count 3.99 M/uL (4.20-5.40); White Blood Count 2.86 K/ul (4.8-10.8)
[2024-01-31 02:45] LABS: Albumin Globulin Ratio 1.2 (0.9-2); BUN Creatinine Ratio 9.5 (10-20); Bilirubin,Total 0.5 mg/dl (0.2-1.0); Calcium 7.7 mg/dl (8.6-10.3); Creatinine Clr Calc Pharmacy 91.5 ml/min; Est GFR (African American) 82.1 ml/min; Est GFR (Non-African American) 70.8 ml/min; Globulin 2.5 gm/dl (2.5-4.0); Magnesium 2.2 mg/dl (1.7-2.4); Phosphorus 3.9 mg/dl (2.5-4.9); Potassium 3.5 mmol/L (3.5-5.1); Total Protein 5.5 gm/dl (6.0-8.3)
[2024-01-31] MEDS: PIPERACILLIN/TAZOBACTAM 4.5 GM in DEXTROSE 5% MINI-B 100 ML IV SCH (03:08)
[2024-01-31] MEDS: VANCOMYCIN HCL 1,250 MG in SODIUM CHLORIDE 0.9% 250 ML IV SCH (05:54)
[2024-01-31] MEDS: D5W AND 1/2NSS + 20MEQ KCL 20 MEQ/1,000 ML BAG IV ONE (05:54)
[2024-01-31] MEDS: LORATADINE 10 MG TAB PO SCH (08:44)
[2024-01-31] MEDS: FLUoxetine HCL 20 MG CAP PO SCH (08:44)
[2024-01-31] MEDS: FOLIC ACID 400 MCG TAB PO SCH (08:44)
[2024-01-31] MEDS: ENOXAPARIN INJ 40 MG/0.4 ML SYR SQ SCH (08:52)
--- NOTE | 2024-01-31 10:44 | Ultrasound Report ---
ABDOMINAL ULTRASOUND, RIGHT UPPER QUADRANT HISTORY: Acutely elevated LFTs Transaminitis. COMPARISON: CT 01/30/2024 FINDINGS: Pancreas: The pancreas demonstrates a normal echotexture. Liver: Unchanged right hepatic lobe cyst measuring 3 cm. No solid hepatic mass lesions identified. No evidence of cirrhosis. Gallbladder: Cholecystectomy. CBD: 1.2 cm, likely postoperative. Right kidney: No hydronephrosis. IMPRESSION: 1. Unremarkable exam status post cholecystectomy. 2. Dilation of the common bile duct is likely on a postoperative basis. Correlate with serum bilirubi n. ACT 112: Negative or not required by law. Electronically signed by: Rusty Magaña M.D. 01/31/2024 10:41 AM
--- NOTE | 2024-01-31 10:53 | XRay Report ---
XR lumbar spine 2-3V HISTORY: 48 years-old Female Back Pain, H/O ankylosing spondylitis acute low back pain COMPARISON: CT 01/30/2024 TECHNIQUE: 3 views of the lumbar spine FINDINGS: Upper abdominal surgical clips. Battery pack projects over the left gluteal tissues with a single dave d projected over the left sacrum. Mild lumbar levoscoliosis. Bilateral nephrolithiasis redemonstrated . No acute fracture, subluxation or endplate erosion identified. Mild multilevel and vertebral disc s pace narrowing and spondylotic spurring. Severe L4-L5 facet arthrosis with degenerative related 3 mm anterolisthesis L4 on L5. IMPRESSION: 1. No acute fracture or subluxation. 2. Severe L4-L5 facet arthrosis. 3. Bilateral nephrolithiasis redemonstrated. ACT 112: Negative or not required by law. The above report was generated using voice recognition software. It may contain grammatical, syntax o r spelling errors. Electronically signed by: Rusty Magaña M.D. 01/31/2024 10:51 AM
--- NOTE | 2024-01-31 11:42 | Pharmacy Report ---
Pharmacy PK ABX Note - Date of Service January 31, 2024 - Assessment and Plan Assessment 48 year old F receiving Zosyn/vancomycin for treatment of UTI r/o bacteremia and infected stones. Pertinent microbiologic data includes: urine culture less than 1000 colonies (not finalized) and blood cultures pending. Day # 1 of antimicrobial therapy. Plan Vancomycin * Loading dose: 2000 mg IV x 1 * Maintenance dose: 1250 mg IV every 12 hours * Regimen is predicted to achieve target AUC/EDMUNDO of 400-600 mg/L.hr * Random level ordered for: 01/31 with AM labs Pharmacy will continue to follow and will adjust dose/frequency as necessary. Thank you. Pharmacy has transitioned to AUC monitoring for vancomycin. AUC/EDMUNDO is the preferred PK/PD target and is associated with decreased risk of nephrotoxicity compared to traditional trough targets.
--- NOTE | 2024-01-31 12:23 | Electrocardiogram Report ---
Test Reason : Blood Pressure : / mmHG Vent. Rate : 112 BPM Atrial Rate : 112 BPM P-R Int : 126 ms QRS Dur : 084 ms QT Int : 376 ms P-R-T Axes : 033 021 047 degrees QTc Int : 513 ms Sinus tachycardia Low voltage QRS Prolonged QT Nonspecific T wave abnormality When compared with ECG of 15-APR-2016 13:37, Vent. rate has increased BY 41 BPM Nonspecific T wave abnormality now evident in Anterior leads QT has lengthened Confirmed by Nino Mejia ([id number]) on 01/31/2024 12:23:23 PM Referred By: REFERRED SELF Confirmed By:Nino Mejia
--- NOTE | 2024-01-31 13:29 | Hospitalist Progress Note ---
Date of Service January 31, 2024 Assessment & Plan (1) UTI (urinary tract infection): (2) Hyponatremia: (3) Hypomagnesemia: (4) Hypokalemia: (5) Nephrolithiasis: (6) Ankylosing spondylitis: Plan 48 year old female with h/o ankylosing spondylitis who presented to the ED with ongoing symptoms of fever, N/V, dysuria for past 12 days. Recently completed course of cipro for a week followed by levaquin and bactrim for past 2 days but without improvement Suspected Complicated UTI Nephrolithiasis Persistent intermittent fever Pancytopenia UA suggestive of UTI --CT ABD: Medullary nephrocalcinosis with nonobstructing bilateral nephrolit hiasis. No ureteral calculi or hydronephrosis. No bowel obstruction or bowel wall thickening. --CXR: No acute process. -- Blood culture pending --Urine culture negative to date -- Serology for tickborne disease negative ? Reliability of cultures given patient being on antibiotics for the last 2 weeks Empirically on vancomycin, Zosyn IV fluids as needed May need ID eval Monitor CBC Nausea, vomiting Transaminitis CBD dilatation --CT abdomen as above --Liver USD:Unremarkable exam status post cholecystectomy. Dilation of the common bile duct is likely on a postoperative basis. Correlate with serum bilirubin. Advance diet as tolerated Monitor LFTs Avoid hepatotoxic agents as able Consulted GI Back pain Secondary to ankylosing spondylitis --Lumbar X ray:No acute fracture or subluxation. Severe L4-L5 facet arthrosis. Bilateral nephrolithiasis redemonstrated. Pain control on hydroxychloroquine, secukinumab, folic acid--Home medications currently held in setting of acute infection Hypokalemia Hyponatremia Hypomagnesemia Hypophosphatemia Likely due to GI losses, poor oral intake Monitor and replete electrolytes as needed Nephrolithiasis Follow-up with urology as outpatient DVT Px: Lovenox SQ CODE STATUS Full code Admission and Anticipated Discharge Date Admission Date: January 30, 2024 Subjective Patient is seen and examined at bedside Nausea, vomiting resolved Reports lower back pain Also has some chest tightness, dysuria Reports decreased appetite lately Denies any abdominal pain, dizziness No other complaints Review of Systems Review of Systems: All systems reviewed & are unremarkable except as noted in Subjective Physical Exam Physical Exam: Physical Exam: Vitals signs as noted above General Appearance:Moderately built and nourished, no apparent distress Head: normocephalic, Atraumatic Eyes: normal inspection, EOMI Neck: supple, Trachea midline Respiratory/Chest: Normal breath sounds, CTA, No accessory muscle use Cardiovascular: S1, S2, No murmur Abdomen/GI:Soft, Non tender, Bowel sounds present Back: +Mild lower back up scan coordinator Extremities/Musculoskeletal:normal inspection, no edema Neurologic/Psych:AAOX3, grossly no focal neurological deficits Skin: normal color, warm Results & Data Results & Data Vital Signs (Past 12 Hours) Vital Signs Temp Pulse Pulse Resp BP Pulse Ox O2 Del Method 01/31/24 13:14 90 22 128/85 100 Room Air 01/31/24 11:21 36.9 C 81 20 118/75 97 Room Air 01/31/24 09:46 86 01/31/24 08:30 83 16 105/77 98 Room Air 01/31/24 06:00 81 20 116/79 100 Room Air 01/31/24 05:00 90 26 H 128/85 95 Room Air 01/31/24 04:00 78 24 83/48 L 97 Room Air 01/31/24 03:00 80 16 80/44 L 100 Room Air 01/31/24 02:00 79 25 H 98/63 L 98 Room Air Laboratory Results Short CBC 01/30/24 01/31/24 Range/Units 15:08 02:12 WBC 4.77 L 2.86 L (4.8-10.8) K/ul Hgb 13.2 11.0 L (12.0-16.0) g/dl Hct 39.7 32.4 L (37.0-47.0) % Plt Count 97 L 88 L (130-400) K/uL BMP 01/30/24 01/30/24 01/31/24 15:08 22:36 02:12 Sodium 126 L 132 L 135 L Potassium 3.1 L 3.4 L 3.5 Chloride 92 L 102 105 Carbon Dioxide 24 BUN 14 10 9 Creatinine 1.08 0.91 0.95 Glucose 117 H 111 H 99 Calcium 8.8 7.3 L 7.7 L 01/31/24 08:12 Sodium 137 Potassium Chloride Carbon Dioxide BUN Creatinine Glucose Calcium Liver Function 01/30/24 01/31/24 Range/Units 15:08 02:12 Total Bilirubin 0.5 0.5 (0.2-1.0) mg/dl Direct Bilirubin 0.1 (0-0.2) mg/dl AST 293 H 394 H (13-39) U/L ALT 210 H 257 H (7-52) U/L Alkaline Phosphatase 90 76 (34-104) U/L Albumin 3.7 3.0 L (3.4-5.0) gm/dl Urine 01/30/24 Range/Units 15:05 Urine Color Dark Yellow Urine Appearance Cloudy A (Clear) Urine pH 6.5 (4.5-7.5) Ur Specific [place] 1.032 H (1.000-1.030) Urine Protein 2+ H (Negative) Urine Glucose (UA) Negative (Negative)
[2024-01-31] MEDS: LEVALBUTEROL HCL 0.63 MG/3 ML NEB NEB PRN (23:36)
[2024-02-01] MEDS: tiZANidine HCL 4 MG TABLET PO STA ×2 (01:05→05:57)
[2024-02-01] MEDS: VANCOMYCIN LEVEL ONE (05:47)
[2024-02-01 05:54] LABS: Hematocrit (blood only) 32.1 % (37.0-47.0); Hemoglobin 10.7 g/dl (12.0-16.0); Mean Corpuscular Hemoglobin 27.6 pg (25.0-34.0); Mean Corpuscular Hgb Conc 33.3 g/dL (32.0-36.0); Mean Corpuscular Volume 82.9 fL (80.0-100.0); Mean Platelet Volume 11.1 fL (9.4-12.4); Platelet Count 78 K/uL (130-400); RDW Coefficient of Variation 13.3 % (11.5-14.5); RDW Standard Deviation 40.3 fL (36.4-46.3); Red Blood Count 3.87 M/uL (4.20-5.40); White Blood Count 2.57 K/ul (4.8-10.8)
[2024-02-01 06:05] LABS: Albumin Globulin Ratio 1.4 (0.9-2); Albumin Level 3.4 gm/dl (3.4-5.0); BUN Creatinine Ratio 7.9 (10-20); Bilirubin,Total 0.5 mg/dl (0.2-1.0); Calcium 8.5 mg/dl (8.6-10.3); Creatinine Clr Calc Pharmacy 114.2 ml/min; Est GFR (African American) 107.5 ml/min; Est GFR (Non-African American) 92.8 ml/min; Globulin 2.5 gm/dl (2.5-4.0); Magnesium 1.7 mg/dl (1.7-2.4); Phosphorus 1.8 mg/dl (2.5-4.9); Potassium 4.1 mmol/L (3.5-5.1); Total Protein 5.9 gm/dl (6.0-8.3)
--- NOTE | 2024-02-01 07:47 | Pharmacy Report ---
Pharmacy PK ABX Note - Date of Service February 01, 2024 - Assessment and Plan Assessment 01/31: Reviewed vancomycin level, predicted to achieve goal AUC/EDMUNDO, continue current regimen. Blood cultures NG x24 hours. Hospitalist considering ID consult as patient is still spiking fevers, WBC on lower end. 01/29: 48 year old F receiving Zosyn/vancomycin for treatment of UTI r/o bacteremia and infected stones. Pertinent microbiologic data includes: urine culture less than 1000 colonies (not finalized) and blood cultures pending. Day # 1 of antimicrobial therapy. Plan Vancomycin * Loading dose: 2000 mg IV x 1 * Maintenance dose: 1250 mg IV every 12 hours * Regimen is predicted to achieve target AUC/EDMUNDO of 400-600 mg/L.hr * Random level to be ordered if continued based on clinical status. Pharmacy will continue to follow and will adjust dose/frequency as necessary. Thank you. Pharmacy has transitioned to AUC monitoring for vancomycin. AUC/EDMUNDO is the preferred PK/PD target and is associated with decreased risk of nephrotoxicity compared to traditional trough targets.
[2024-02-01] MEDS ORDERED: SODIUM PHOSPHATE 3 MMOL/1 ML INFUSION IV ONE (09:58)
[2024-02-01] MEDS: SODIUM PHOSPHATE 15 MMOL in SODIUM CHLORIDE 0.9% 250 ML IV ONE (10:49)
[2024-02-01 11:31] LABS: D Dimer 17410 ug/L FEU (0-500)
[2024-02-01] MEDS: tiZANidine HCL 4 MG TABLET PO PRN (12:59)
[2024-02-01 14:29] LABS: Adenovirus PCR Not Detected (NotDetected); Bordetella parapertussis PCR Not Detected (NotDetected); Bordetella pertussis PCR Not Detected (NotDetected); Chlamydia pneumoniae PCR Not Detected (NotDetected); Coronavirus 229E PCR Not Detected (NotDetected); Coronavirus CoV-2 (COVID19)PCR Not Detected (NotDetected); Coronavirus HKU1 PCR Not Detected (NotDetected); Coronavirus NL63 PCR Not Detected (NotDetected); Coronavirus OC43PCR Not Detected (NotDetected); Human Metapneumovirus PCR Not Detected (NotDetected); Influenza A PCR Not Detected (NotDetected); Influenza B PCR Not Detected (NotDetected); Mycoplasma pneumoniae PCR Not Detected (NotDetected); Parainfluenza Virus 1 PCR Not Detected (NotDetected); Parainfluenza Virus 2 PCR Not Detected (NotDetected); Parainfluenza Virus 3 PCR Not Detected (NotDetected); Parainfluenza Virus 4 PCR Not Detected (NotDetected); Respiratory Syncytial VirusPCR Not Detected (NotDetected); Rhinovirus/Enterovirus PCR Not Detected (NotDetected)
[2024-02-01] MEDS: OPTIRAY 320 125ml IV ONE (14:44)
--- NOTE | 2024-02-01 14:53 | CT Scan Report ---
CT lumbar spine w con CLINICAL HISTORY: Back Pain TECHNIQUE: Multidetector row helical CT of the lumbar spine was performed without administration of i ntravenous contrast. Coronal and sagittal reformations were obtained. Automated dose lowering techniq ues and/or adjustment according to patient size were utilized for this exam. CT DOSE: 3204.09 mGy.cm Comparison: None available at the time of this dictation. FINDINGS: For counting purposes, the last complete intervertebral disc space is considered L5-S1. No acute fractures are identified. Vertebral body heights and disk spaces are well maintained. Verteb ral body alignment is within normal limits. Small bilateral renal cysts are seen. IMPRESSION: No evidence of acute bony injury. ACT 112: Negative or not required by law. Electronically signed by: Jarad Cortez M.D. 02/01/2024 2:52 PM
--- NOTE | 2024-02-01 15:22 | CT Scan Report ---
CT hip LT w con HISTORY: 48 years-old Female FUO, Bladder Stimulator r/o abscess COMPARISON: CTA chest and CT lumbar spine of same day, CT abdomen and pelvis 01/30/2024 TECHNIQUE: CT left hip was obtained with IV contrast. A dose lowering technique was used consistent w ith the principals madison SZYMANSKI. FINDINGS: A battery pack is noted within subcutaneous left buttock distribution. A spinal stimulator device is noted with lead extending through the left sacral foramen. Small amount of free pelvic fluid. Colonic diverticulosis. No acute fracture, subluxation, osseous erosion or destructive lesion. Again moderat e degeneration of the SI joints. Severe lower lumbar facet arthrosis. IMPRESSION: 1. No acute fracture or dislocation. 2. Small amount of free pelvic fluid. ACT 112: Negative or not required by law. The above report was generated using voice recognition software. It may contain grammatical, syntax o r spelling errors. Electronically signed by: Rusty Magaña M.D. 02/01/2024 3:21 PM
--- NOTE | 2024-02-01 15:37 | CT Scan Report ---
CHEST CTA for PULMONARY ARTERIES CT DOSE: HISTORY: Sepsis. TECHNIQUE: Multiaxial CT images of the chest were performed following the intravenous administration of contrast to evaluate the pulmonary arteries. 3D/Maximal intensity projection images were also obta ined. Sagittal and coronal reformations were also reviewed. A dose lowering technique was utilized a dhering to the principles of ALARA. COMPARISON STUDY: None. FINDINGS: Normal caliber thoracic aorta with no evidence for a dissection. The heart is normal in siz e. No pericardial effusion. Trace bilateral pleural effusions are noted. The thyroid gland enhances n ormally. Limited views of the upper abdomen demonstrate hepatic steatosis and a normal spleen. The vi sualized adrenal glands are unremarkable. Postoperative changes noted within the stomach. Normal esop hagus. No mediastinal or hilar lymphadenopathy. Normal caliber thoracic aorta with no evidence for a dissection. Although difficult to confirm with certainty due to the motion artifact, there is suggest ion of a filling defect within the left lower lobe segmental/subsegmental pulmonary artery best seen on images 77 through 85. Therefore, this may represent a pulmonary embolus. There is suboptimal evalu ation of the bilateral lower lobe, right middle lobe, lingular segmental/subsegmental pulmonary arter ies due to the motion artifact. No additional filling defects within the remaining pulmonary arteries to confirm a pulmonary embolus. No acute fractures within the chest. No pneumothorax. The central ai rways are patent. Patchy and linear densities within the base of the bilateral lower lobes and lingul a are noted. These are nonspecific but could represent subsegmental atelectasis or a pneumonia. IMPRESSION: 1. Although difficult to confirm with certainty due to the motion artifact, there is suggestion of a filling defect within the left lower lobe segmental/subsegmental pulmonary artery which may represent a pulmonary embolus. Follow-up lower extremity venous Doppler study recommended to assess for DVT. 2. Patchy and linear densities within the base of the bilateral lower lobes and lingula are noted. Th daquan are nonspecific but could represent subsegmental atelectasis or a pneumonia. 3. Trace bilateral pleural effusions. ACT 112: Negative or not required by law. Electronically signed by: Dontrell Griffin M.D. 02/01/2024 3:35 PM
--- NOTE | 2024-02-01 15:47 | Gastrointestinal Consultation ---
<Statement entered by Cheryl Mason MD - 02/01/24 17:43> I have examined the patient, reviewed the History & Physical and in the interval since the performance of the History & Physical I have noted the following changes of clinical significance: no changes noted. I agree with the documentation provided by KATHERYN Nguyen with no additional comments. Unlikely biliary source but fevers are perplexing. Agree w ID consult. Trend LFTs; avoid hepatotoxins. Date of Consultation February 01, 2024 Assessment & Plan (1) Elevated LFTs: -Check hepatitis panel -ID consult, continue antibiotics for now -No indication in bilirubin or on liver US or CT abdomen of any biliary obstruc tion -Continue to monitor LFTs as they appear to be down trending History of Present Illness Reason for Consultation: Common bile duct dilation Attending Physician: Ricardo Mcgarry MD History of Present Illness Patient is a 48 yo female with fevers. GI consulted due to elevated LFTs & CBD dilation. Liver US & CT scan show CBD dilation that was felt to be related to post-cholecystectomy state. Patient notes ethan 20+ years ago. She notes no RUQ pain or jaundice. LFTs --T bili 0.5, AST 192, ALT 128 (down from 394, 257). She is on IV Zosyn & vancomycin. She was on several antibiotics prior to admission for a UTI. She has persistent genuine fevers and a pending ID consult. Allergies Allergy/AdvReac Type Severity Reaction Status Date / Time Penicillins Allergy Intermediate HIVES Verified 01/30/24 17:04 codeine AdvReac Intermediate CHEST PAIN Verified 01/30/24 17:04 Home Medications Medication Instructions Recorded Confirmed Type albuterol sulfate 90 mcg/actuation 2 puffs inhalation Q4H PRN 02/23/19 01/30/24 History aerosol inhaler Shortness Of Breath cholecalciferol (vitamin D3) 125 5,000 units PO QPM 02/23/19 01/30/24 History mcg (5,000 unit) capsule fluoxetine 40 mg capsule See Rx Instructions .Route .COMPLEX 02/23/19 01/30/24 History folic acid 800 mcg tablet 800 mcg PO QAM 02/23/19 01/30/24 History secukinumab 150 mg/mL subcutaneous 150 mg subcut MONTHLY 02/23/19 01/30/24 History syringe fluoxetine 20 mg tablet See Rx Instructions .Route .COMPLEX 01/09/22 01/30/24 History fremanezumab-vfrm 225 mg/1.5 mL 675 mg subcut UD 01/09/22 01/30/24 History subcutaneous auto-injector (Ajovy) loratadine 10 mg tablet 10 mg PO QAM 01/09/22 01/30/24 History ubrogepant 100 mg tablet (Ubrelvy) 100 mg PO UD PRN Migraine Headache 01/09/22 01/30/24 History hydroxychloroquine 200 mg tablet 200 mg PO BID 01/30/24 01/30/24 History levofloxacin 750 mg tablet 750 mg PO DAILY 01/30/24 01/30/24 History sulfamethoxazole 800 1 tab PO BID 01/30/24 01/30/24 History mg-trimethoprim 160 mg tablet tamsulosin 0.4 mg capsule 0.4 mg PO DAILY kidney stones 01/30/24 01/30/24 History Patient History Medical History Recurrent nephrolithiasis Chronic back pain History of MTHFR mutation Takes folic acid Temporomandibular joint disorder Was using a bite block at night, not recently Anxiety Migraine History of COVID-19 09/2021--mild symptoms, symptoms have since resolved Exercise-induced asthma Inhaler PRN Ankylosing spondylitis On Cosentyx Recurrent UTI Surgical History History of foot surgery left plantar fasciotomy History of bladder surgery bladder stimulator History of esophagogastroduodenoscopy (EGD) History of colonoscopy History of cholecystectomy History of tooth extraction History of wisdom tooth extraction History of tonsillectomy and adenoidectomy Bariatric surgery status gastric sleeve Hx of appendectomy H/O lithotripsy H/O: hysterectomy total hyster with BSO Family History Mother Kidney stones Sister Kidney stones Other No family history of adverse response to anesthesia Denies family history of Kidney disease Social History Smoking Status: Never smoker Second Hand Exposure: No; Do You Dip or Chew Tobacco: No; Hx Alcohol Use: No Hx Substance Use: No Preferred Language: Citizen Of [place] Communication Ability: Effective Record Keeper Required: Yes Beliefs That Will Affect Care: None Current Living Situation: Spouse Current Living Situation Comment: Lives with fiance and 3 kids current occupational status: employed 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 Other Information That Helps Us Care for You: No Feels Safe at Home: Yes Safety Concerns: Feels Safe At This Time Assistive Devices: None Review of Systems Constitutional: + fever Gastrointestinal: no abdominal pain Psychiatric: no problem reported Physical Exam Constitutional: well developed Gastrointestinal (Abdomen): Inspection/Auscultation: abdomen normal to inspection Psychiatric: Orientation: alert and oriented x 3 Results & Data Vital Signs (Past 12 Hours) Vital Signs Temp Pulse Pulse Resp BP BP Pulse Ox 02/01/24 11:25 39.4 C H 106 H 18 118/77 98 02/01/24 07:35 37.7 C H 71 18 104/65 98 02/01/24 04:51 36.9 C 90 18 110/60 99 O2 Del Method 02/01/24 11:25 Room Air 02/01/24 07:35 Room Air 02/01/24 04:51 Room Air PG Care Time/CCT Total # of Minutes Spent Total Time Spent with Patient: Total time spent is greater than 50% in coordination of care (as documented) at patient's floor/unit and/or counseling patient: Coding Level of Care Code 70790 IN/OBS CONSULT LVL 4,60M Diagnoses Elevated LFTs R79.89
--- NOTE | 2024-02-01 16:02 | Ultrasound Report ---
BILATERAL LOWER EXTREMITY VENOUS DOPPLER HISTORY: Elevated D dimer, R/O DVT COMPARISON STUDY: None. FINDINGS: There is normal compressibility, flow, and augmentation within the left lower extremity merlyn p venous system. The right common femoral, superficial femoral, popliteal, and tibial veins are paten t. There is thrombus identified within the duplicated right peroneal veins. IMPRESSION: 1. Thrombus identified within the right peroneal veins consistent with a DVT. 2. No DVT within the left lower extremity. ACT 112: Negative or not required by law. Electronically signed by: Dontrell Griffin M.D. 02/01/2024 4:00 PM
--- NOTE | 2024-02-01 16:23 | Hospitalist Progress Note ---
Date of Service February 01, 2024 Assessment & Plan (1) UTI (urinary tract infection): (2) Hyponatremia: (3) Hypomagnesemia: (4) Hypokalemia: (5) Nephrolithiasis: (6) Ankylosing spondylitis: Plan 48 year old female with h/o ankylosing spondylitis who presented to the ED with ongoing symptoms of fever, N/V, dysuria for past 12 days. Recently completed course of cipro for a week followed by levaquin and bactrim for past 2 days but without improvement Acute right lower extremity DVT--POA Suspected acute PE --CTA:Although difficult to confirm with certainty due to the motion artifact, there is suggestion of a filling defect within the left lower lobe segmental/subsegmental pulmonary artery which may represent a pulmonary embolus. Follow-up lower extremity venous Doppler study recommended to assess for DVT. Patchy and linear densities within the base of the bilateral lower lobes and lingula are noted. These are nonspecific but could represent subsegmental atelectasis or a pneumonia. Trace bilateral pleural effusions. --Venous Doppler:Thrombus identified within the right peroneal veins consistent with a DVT. No DVT within the left lower extremity. Started on IV heparin Monitor platelets, for any bleeding issues closely given thrombocytopenia Possible sepsis SIRS Suspected pneumonia CTA chest as above UTI ruled out ? Reliability of cultures given patient being on antibiotics for the last 2 weeks Negative BioFire Serology for tickborne negative Check MRSA screen Blood cultures no growth to date DNA for Anaplasma, Babesia pending Urine culture grew lactobacillus species Empirically on vancomycin, Zosyn Consider ID evaluation if needed Pancytopenia Peripheral smear reviewed--no abnormal cells If remains persistent, may need further evaluation with bone marrow biopsy Monitor CBC Nausea, vomiting Transaminitis CBD dilatation --CT abdomen as above --Liver USD:Unremarkable exam status post cholecystectomy. Dilation of the common bile duct is likely on a postoperative basis. Correlate with serum bilirubin. Advance diet as tolerated Monitor LFTs Avoid hepatotoxic agents as able Appreciate GI input Check hepatitis panel Back pain Secondary to ankylosing spondylitis --Lumbar CT:No evidence of acute bony injury. Pain control on hydroxychloroquine, secukinumab, folic acid--Home medications currently held in setting of acute infection Hypokalemia Hyponatremia Hypomagnesemia Hypophosphatemia Likely due to GI losses, poor oral intake Monitor and replete electrolytes as needed Nephrolithiasis Follow-up with urology as outpatient DVT Px: Heparin ggt CODE STATUS Full code Admission and Anticipated Discharge Date Admission Date: January 30, 2024 Subjective Patient is seen and examined at bedside Nausea, vomiting resolved Reports lower back pain Also has some chest tightness, dysuria Reports decreased appetite lately Denies any abdominal pain, dizziness No other complaints Review of Systems Review of Systems: All systems reviewed & are unremarkable except as noted in Subjective Physical Exam Physical Exam: Physical Exam: Vitals signs as noted above General Appearance:Moderately built and nourished, no apparent distress Head: normocephalic, Atraumatic Eyes: normal inspection, EOMI Neck: supple, Trachea midline Respiratory/Chest: Normal breath sounds, CTA, No accessory muscle use Cardiovascular: S1, S2, No murmur Abdomen/GI:Soft, Non tender, Bowel sounds present Back: +Mild lower back hand Extremities/Musculoskeletal:normal inspection, no edema Neurologic/Psych:AAOX3, grossly no focal neurological deficits Skin: normal color, warm Results & Data Results & Data Vital Signs (Past 12 Hours) Vital Signs Temp Pulse Pulse Resp BP BP Pulse Ox 02/01/24 11:25 39.4 C H 106 H 18 118/77 98 02/01/24 07:35 37.7 C H 71 18 104/65 98 02/01/24 04:51 36.9 C 90 18 110/60 99 O2 Del Method 02/01/24 11:25 Room Air 02/01/24 07:35 Room Air 02/01/24 04:51 Room Air Laboratory Results Short CBC 02/01/24 Range/Units 05:24 WBC 2.57 L (4.8-10.8) K/ul Hgb 10.7 L (12.0-16.0) g/dl Hct 32.1 L (37.0-47.0) % Plt Count 78 L (130-400) K/uL BMP 02/01/24 05:24 Sodium 133 L Potassium 4.1 Chloride 102 Carbon Dioxide 24 BUN 6 Creatinine 0.76 Glucose 105 H Calcium 8.5 L Liver Function 02/01/24 Range/Units 05:24 Total Bilirubin 0.5 (0.2-1.0) mg/dl AST 192 H (13-39) U/L ALT 198 H (7-52) U/L Alkaline Phosphatase 96 (34-104) U/L Albumin 3.4 (3.4-5.0) gm/dl
[2024-02-01] MEDS: Heparin IV Adult Wt-Based Standard *NO* INITIAL Bolus Protocol IV STA (17:27)
[2024-02-01] MEDS: HEPARIN SODIUM/DEXTROSE 25,000 UNITS/500 ML BAG IV SCH (17:41)
[2024-02-01] MEDS: oxyCODONE HCL IR 5 MG TAB (IMMEDIATE RELEASE) PO PRN (18:36)
[2024-02-02 00:26] LABS: ANTI-Xa, UFH(UnfractionatedHep 0.48 IU/ml (0.3-0.7)
--- NOTE | 2024-02-02 05:37 | Electrocardiogram Report ---
Test Reason : Blood Pressure : / mmHG Vent. Rate : 098 BPM Atrial Rate : 098 BPM P-R Int : 092 ms QRS Dur : 074 ms QT Int : 382 ms P-R-T Axes : -21 010 022 degrees QTc Int : 488 ms Sinus rhythm with short ND Prolonged QT Low voltage QRS When compared with ECG of 30-JAN-2024 15:27, No significant change was found Confirmed by Nino Mejia ([id number]) on 02/02/2024 5:37:00 AM Referred By: REFERRED SELF Confirmed By:Nino Mejia
[2024-02-02 07:46] LABS: Hematocrit (blood only) 30.4 % (37.0-47.0); Hemoglobin 10.2 g/dl (12.0-16.0); Mean Corpuscular Hemoglobin 27.3 pg (25.0-34.0); Mean Corpuscular Hgb Conc 33.6 g/dL (32.0-36.0); Mean Corpuscular Volume 81.5 fL (80.0-100.0); Mean Platelet Volume 10.7 fL (9.4-12.4); Platelet Count 100 K/uL (130-400); RDW Coefficient of Variation 13.7 % (11.5-14.5); RDW Standard Deviation 40.6 fL (36.4-46.3); Red Blood Count 3.73 M/uL (4.20-5.40); White Blood Count 2.55 K/ul (4.8-10.8)
[2024-02-02 08:25] LABS: Albumin Globulin Ratio 1.2 (0.9-2); Albumin Level 3.1 gm/dl (3.4-5.0); BUN Creatinine Ratio 9.5 (10-20); Bilirubin,Total 0.6 mg/dl (0.2-1.0); Calcium 7.7 mg/dl (8.6-10.3); Creatinine Clr Calc Pharmacy 117.3 ml/min; Est GFR (Non-African American) 95.8 ml/min; Globulin 2.5 gm/dl (2.5-4.0); Magnesium 1.5 mg/dl (1.7-2.4); Phosphorus 2.6 mg/dl (2.5-4.9); Potassium 3.3 mmol/L (3.5-5.1); Total Protein 5.6 gm/dl (6.0-8.3)
[2024-02-02 08:34] LABS: ANTI-Xa, UFH(UnfractionatedHep 0.42 IU/ml (0.3-0.7)
--- NOTE | 2024-02-02 09:10 | Gastroenterology Progress Note ---
<Statement entered by Cheryl Mason MD - 02/02/24 17:55> I have examined the patient, reviewed the History & Physical and in the interval since the performance of the History & Physical I have noted the following changes of clinical significance: no changes noted. I agree with the documentation provided by KATHERYN Nguyen. Lisa is feeling markedly better today. Still having some left flank pain. Fever curve has improved. Still unclear why she is pancytopenic. LFTs are a bit higher today. Would still recommend considering ID consult; recommend heme consult and, if LFTs are higher tomorrow, given the complexity of the situation would suggest considering MR abd w contrast/MRCP and possibly MR pelvis unless otherwise contraindicated. Date of Service February 02, 2024 Assessment & Plan (1) Elevated LFTs: Plan: -Continue to monitor LFTs; if they continue to rise, can consider autoimmune work-up with FIDENCIO, AMA, ASMA. If bili rises, consider MRCP. Infectious hepatitis panel pending, though LFT elevation could be related to the underlying process patient is experiencing. Admission and Anticipated Discharge Date Admission Date: January 30, 2024 Subjective Patient is a 48 yo female with elevated liver enzymes. AST 251, ALT 244, T bili 0.6. Acute infectious hepatitis panel pending. No stones seen on imaging. Patient feels significantly better today. She notes that her CT chest on 02/01/24 indicated a possible PE and dopplers of the lower extremity were positive for DVT. She notes that after beginning heparin, she is feeling remarkably improved. Temp this AM 37.8. Review of Systems Gastrointestinal: no abdominal pain Physical Exam Constitutional: well developed Gastrointestinal (Abdomen): Inspection/Auscultation: abdomen normal to inspection Psychiatric: Orientation: alert and oriented x 3 Results & Data Results & Data Vital Signs (Past 12 Hours) Vital Signs Temp Pulse Pulse Resp BP BP Pulse Ox 02/02/24 08:42 37.8 C H 89 18 95/64 L 92 02/02/24 05:26 36.9 C 02/02/24 02:42 37.7 C H 87 18 94/60 L 96 02/01/24 22:28 37.0 C 90 18 95/63 L 98 02/01/24 21:52 86 O2 Del Method 02/02/24 08:42 Room Air 02/02/24 05:26 02/02/24 02:42 Room Air 02/01/24 22:28 Room Air 02/01/24 21:52 PG Care Time/CCT Total # of Minutes Spent Total Time Spent with Patient: Total time spent is greater than 50% in coordination of care (as documented) at patient's floor/unit and/or counseling patient: Coding Level of Care Code 44692 SUB INP/OBS CARE 2/35MIN Diagnoses Elevated LFTs R79.89
[2024-02-02 09:59] LABS: Hep B Surface Ag with confirm Negative (Negative)
[2024-02-02 10:04] LABS: Hep C Ab Rflx HepCQuant RNA Negative (Negative)
--- NOTE | 2024-02-02 18:22 | Hospitalist Progress Note ---
Date of Service February 02, 2024 Assessment & Plan (1) UTI (urinary tract infection): (2) Hyponatremia: (3) Hypomagnesemia: (4) Hypokalemia: (5) Nephrolithiasis: (6) Ankylosing spondylitis: Plan 48 year old female with h/o ankylosing spondylitis who presented to the ED with ongoing symptoms of fever, N/V, dysuria for past 12 days. Recently completed course of cipro for a week followed by levaquin and bactrim for past 2 days but without improvement Acute right lower extremity DVT--POA Acute PE --CTA:Although difficult to confirm with certainty due to the motion artifact, there is suggestion of a filling defect within the left lower lobe segmental/subsegmental pulmonary artery which may represent a pulmonary embolus. Follow-up lower extremity venous Doppler study recommended to assess for DVT. Patchy and linear densities within the base of the bilateral lower lobes and lingula are noted. These are nonspecific but could represent subsegmental atelectasis or a pneumonia. Trace bilateral pleural effusions. --Venous Doppler:Thrombus identified within the right peroneal veins consistent with a DVT. No DVT within the left lower extremity. Started on IV heparin She has been feeling much better since intravenous heparin Her platelet count and the hemoglobin have been monitored Very high D-dimer CT scan of the abdomen pelvis and CTA have been negative Will need to have colonoscopy as an outpatient Possible sepsis SIRS Suspected pneumonia CTA chest as above UTI ruled out Reliability of cultures given patient being on antibiotics for the last 2 weeks Negative BioFire Serology for tickborne negative Check MRSA screen-Has been negative Blood cultures no growth to date DNA for Anaplasma, Babesia pending Urine culture grew lactobacillus species Empirically on vancomycin, Zosyn Vancomycin has been discontinued and will continue with intravenous Zosyn only Will start intravenous doxycycline to cover atypicals Get lesional mycoplasma titer Pancytopenia Peripheral smear reviewed--no abnormal cells If remains persistent, may need further evaluation with bone marrow biopsy CBC has been stable with improvement in the platelet Nausea, vomiting Transaminitis CBD dilatation --CT abdomen as above --Liver USD:Unremarkable exam status post cholecystectomy. Dilation of the common bile duct is likely on a postoperative basis. Correlate with serum bilirubin. Advance diet as tolerated Monitor LFTs Avoid hepatotoxic agents as able Appreciate GI input Hepatitis panel is pending Back pain Secondary to ankylosing spondylitis --Lumbar CT:No evidence of acute bony injury. Pain control on hydroxychloroquine, secukinumab, folic acid--Home medications currently held in setting of acute infection Electrolyte abnormalities Hypokalemia Hyponatremia Hypomagnesemia Hypophosphatemia Likely due to GI losses, poor oral intake Monitor and replete electrolytes as needed Nephrolithiasis Follow-up with urology as outpatient DVT Px: Heparin ggt CODE STATUS Full code Admission and Anticipated Discharge Date Admission Date: January 30, 2024 Subjective 02/02/2024 The patient was seen and examined in medical telemetry unit in presence of the family members She has been feeling much better today Denies any more fever and or chills No cough, hemoptysis or shortness of breath and no pain in the legs Review of Systems Review of Systems: All systems reviewed and are unremarkable except as noted below Physical Exam Constitutional: well developed, well nourished and + obese; not ill appearing Eyes: PERRL, conjunctivae normal, anicteric sclerae ENMT: external ear and nose normal, oropharynx normal Neck: trachea midline, no thyromegaly Respiratory: no respiratory distress Auscultation: lungs clear to auscultation bilaterally Cardiovascular: Rate/Rhythm: regular rate and regular rhythm; not tachycardic Heart Sounds: normal S1 and normal S2; no murmur Extremities: no edema Gastrointestinal (Abdomen): Inspection/Auscultation: normal bowel sounds; abdomen not distended Percussion/Palpation: abdomen soft; abdomen nontender Musculoskeletal: No acute arthritis involving any of the joints Neurologic: normal touch/pain/proprioception and moves all extremities; no focal motor deficits Psychiatric: A+Ox3, euthymic affect Lymphatic: no cervical or axillary lymphadenopathy Results & Data Results & Data Vital Signs (Past 12 Hours) Vital Signs Temp Pulse Pulse Resp BP BP Pulse Ox 02/02/24 15:48 36.4 C L 78 20 102/70 95 02/02/24 15:00 02/02/24 15:00 76 02/02/24 12:20 95/64 L 02/02/24 11:42 36.6 C 79 18 84/54 L 98 02/02/24 09:35 90 18 95 02/02/24 09:00 02/02/24 08:42 37.8 C H 89 18 95/64 L 92 02/02/24 08:00 85 Pulse Ox O2 Del Method O2 Del Method 02/02/24 15:48 Room Air 02/02/24 15:00 94 Room Air 02/02/24 15:00 02/02/24 12:20 02/02/24 11:42 Room Air 02/02/24 09:35 Room Air 02/02/24 09:00 Room Air 02/02/24 08:42 Room Air 02/02/24 08:00 Laboratory Results Short CBC 02/02/24 Range/Units 07:15 WBC 2.55 L (4.8-10.8) K/ul Hgb 10.2 L (12.0-16.0) g/dl Hct 30.4 L (37.0-47.0) % Plt Count 100 L (130-400) K/uL BMP 02/02/24 07:15 Sodium 133 L Potassium 3.3 L Chloride 100 Carbon Dioxide 25 BUN 7 Creatinine 0.74 Glucose 78 Calcium 7.7 L Liver Function 02/02/24 Range/Units 07:15 Total Bilirubin 0.6 (0.2-1.0) mg/dl AST 251 H (13-39) U/L ALT 244 H (7-52) U/L Alkaline Phosphatase 93 (34-104) U/L Albumin 3.1 L (3.4-5.0) gm/dl Medications Administered Current Inpatient Medications Acetaminophen (Acetaminophen 325 Mg Tab) 650 mg PO Q4H PRN PRN Reason: fever Stop: 02/29/24 20:10 Last Admin: 02/02/24 08:32 Dose: 650 mg Albuterol (Albuterol Hfa 8 Gm Inhaler) 2 puffs INH Q4H PRN PRN Reason: Shortness Of Breath Stop: 02/29/24 21:27 Fluoxetine HCl (Fluoxetine Hcl 20 Mg Cap) 60 mg PO QAM [facility] Stop: 03/01/24 08:59 Last Admin: 02/02/24 08:33 Dose: 60 mg Folic Acid (Folic Acid 400 Mcg Tab) 800 mcg PO QAM [facility] Stop: 03/01/24 08:59 Last Admin: 02/02/24 08:33 Dose: 800 mcg Piperacillin Sod/Tazobactam (Sod 4.5 gm/ Dextrose) 100 mls @ 25 mls/hr IV Q8H [facility]; Protocol Stop: 02/10/24 01:59 Last Admin: 02/02/24 17:24 Dose: 25 mls/hr Heparin Sodium/Dextrose (Heparin Sodium/Dextrose) 25,000 units in 500 mls @ 29 mls/hr IV .[id number] [facility]; Protocol Stop: 03/02/24 16:29 Last Admin: 02/02/24 10:25 Dose: 1,450 units/hr, 29 mls/hr Levalbuterol HCl (Levalbuterol Hcl 0.63 Mg/3 Ml Neb) 0.63 mg NEB Q6H PRN; Protocol PRN Reason: Shortness Of Breath Or Wheezing Stop: 03/01/24 09:55 Last Admin: 02/02/24 09:32 Dose: 0.63 mg Loratadine (Lor[facility]adine 10 Mg Tab) [facility] [place] Stop: 03/01/24 08:59 Last Admin: 02/02/24 08:33 Dose: 10 mg Oxycodone HCl (Oxycodone Hcl Ir 5 Mg Tab (Immediate Release)) 5 mg PO Q6H PRN PRN Reason: Pain Stop: 02/15/24 17:32 Last Admin: 02/02/24 17:23 Dose: 5 mg Tizanidine HCl (Tizanidine Hcl 4 Mg Tablet) 2 mg PO TID PRN PRN Reason: spasm Stop: 03/02/24 08:59 Last Admin: 02/02/24 02:16 Dose: 2 mg
[2024-02-02] MEDS: POTASSIUM CHLORIDE CRTAB 20 MEQ TABCR PO STA (19:43)
[2024-02-02] MEDS: MAGNESIUM OXIDE 400 MG TAB PO SCH (20:39)
[2024-02-02] MEDS: DOXYCYCLINE HYCLATE 100 MG in DEXTROSE 5% MINI-B 100 ML IV SCH (21:45)
[2024-02-03] MEDS ORDERED: PROMETHAZINE HCL 12.5 MG in SODIUM CHLORIDE 0.9% 50 ML IV PRN (00:43)
--- NOTE | 2024-02-03 00:44 | Communication Note ---
Date of Service: February 03, 2024
[2024-02-03] MEDS: MoRPHine SULFATE 4 MG/ML 1 ML CARP\\VIAL IV STA (00:59)
--- NOTE | 2024-02-03 02:37 | CT Scan Report ---
Exam(s): CT ABDOMEN + PELVIS Without Contrast EXAM: CT Abdomen and Pelvis Without Intravenous Contrast CLINICAL HISTORY: Back Pain. TECHNIQUE: Axial computed tomography images of the abdomen and pelvis without intravenous contrast. CTDI is 28.08 mGy and DLP is 1595.22 mGy-cm. Automated exposure control was utilized for the study. A dose lowering technique was utilized adhering to the principles of ALARA. COMPARISON: CT abdomen and pelvis 04/29/2015 FINDINGS: Lung bases: Unremarkable. No mass. No consolidation. ABDOMEN: Liver: Hepatic cyst are noted, no follow-up is needed. No suspicious hepatic lesion. Gallbladder and bile ducts: Cholecystectomy. Prominence of the common bile duct likely represents reservoir effect from the prior cholecystectomy. Pancreas: Unremarkable. No ductal dilation. Spleen: Unremarkable. No splenomegaly. Adrenals: Unremarkable. No mass. Kidneys and ureters: Punctate nonobstructing bilateral renal calculi. No hydronephrosis. Stomach and bowel: There are surgical changes of the stomach. No obstruction. No mucosal thickening. PELVIS: Appendix: No findings to suggest acute appendicitis. Bladder: Unremarkable. No stones. Reproductive: Hysterectomy. ABDOMEN and PELVIS: Intraperitoneal space: A small moderate free fluid in the pelvis is nonspecific. No free air. Bones/joints: There are degenerative changes of the spine. No acute fracture. No dislocation. Soft tissues: Unremarkable. Vasculature: Unremarkable. No abdominal aortic aneurysm. Lymph nodes: Unremarkable. No enlarged lymph nodes. IMPRESSION: 1. A small moderate free fluid in the pelvis is nonspecific. 2. Punctate nonobstructing bilateral renal calculi. No hydronephrosis. Electronically signed by: Brenda Fink MD 02/03/24 02:22 AM
[2024-02-03] MEDS: KETOROLAC TROMETHAMINE 15 MG/ML VIAL IV ONE (05:29)
[2024-02-03] MEDS: LIDOCAINE 5% 1 PATCH TD SCH (05:41)
[2024-02-03] MEDS: NSS + 20MEQ KCL 20 MEQ/1,000 ML BAG IV ONE (05:41)
[2024-02-03 07:15] LABS: Hematocrit (blood only) 29.8 % (37.0-47.0); Hemoglobin 9.9 g/dl (12.0-16.0); Mean Corpuscular Hgb Conc 33.2 g/dL (32.0-36.0); Mean Corpuscular Volume 81.4 fL (80.0-100.0); Platelet Count 124 K/uL (130-400); RDW Coefficient of Variation 13.7 % (11.5-14.5); RDW Standard Deviation 40.5 fL (36.4-46.3); Red Blood Count 3.66 M/uL (4.20-5.40)
[2024-02-03 07:34] LABS: Basophils # (auto) 0.02 K/uL (0.00-0.20); Basophils % (auto) 0.5 %; Eosinophils # (auto) 0.12 K/uL (0.00-0.50); Eosinophils % (auto) 2.8 %; Immature Granulocytes # (auto) 0.04 K/uL (0.01-0.20); Immature Granulocytes % (auto) 0.9 %; Lymphocytes # (auto) 0.59 K/uL (1.20-3.40); Lymphocytes % (auto) 13.7 %; Monocytes # (auto) 0.15 K/uL (0.11-0.59); Monocytes % (auto) 3.5 %; Neutrophils # (auto) 3.38 K/uL (1.40-6.50); Neutrophils % (auto) 78.6 %
[2024-02-03 08:07] LABS: Albumin Globulin Ratio 1.1 (0.9-2); Albumin Level 2.9 gm/dl (3.4-5.0); BUN Creatinine Ratio 7.8 (10-20); Bilirubin,Total 0.6 mg/dl (0.2-1.0); Calcium 7.7 mg/dl (8.6-10.3); Creatinine Clr Calc Pharmacy 112.7 ml/min; Est GFR (African American) 105.8 ml/min; Est GFR (Non-African American) 91.3 ml/min; Globulin 2.6 gm/dl (2.5-4.0); Magnesium 1.5 mg/dl (1.7-2.4); Phosphorus 2.6 mg/dl (2.5-4.9); Potassium 3.4 mmol/L (3.5-5.1); Total Protein 5.5 gm/dl (6.0-8.3)
[2024-02-03] MEDS: oxyCODONE HCL IR 5 MG TAB (IMMEDIATE RELEASE) PO PRN (11:13)
[2024-02-03] MEDS: POTASSIUM CHLORIDE CRTAB 20 MEQ TABCR PO STA (11:21)
[2024-02-03] MEDS: MAGNESIUM SULFATE / D5W 1 GM/100 ML BAG IV ONE (11:42)
[2024-02-03 13:51] LABS: Hepatitis A Antibody IgM NON-REACTIVE (NON-REACTIVE); Hepatitis B Core Antibody IgM NON-REACTIVE (NON-REACTIVE)
--- NOTE | 2024-02-03 15:04 | Hospitalist Progress Note ---
Date of Service February 03, 2024 Assessment & Plan (1) UTI (urinary tract infection): (2) Hyponatremia: (3) Hypomagnesemia: (4) Hypokalemia: (5) Nephrolithiasis: (6) Ankylosing spondylitis: Plan 48 year old female with h/o ankylosing spondylitis who presented to the ED with ongoing symptoms of fever, N/V, dysuria for past 12 days. Recently completed course of cipro for a week followed by levaquin and bactrim for past 2 days but without improvement Acute right lower extremity DVT--POA Acute PE --CTA:Although difficult to confirm with certainty due to the motion artifact, there is suggestion of a filling defect within the left lower lobe segmental/subsegmental pulmonary artery which may represent a pulmonary embolus. Follow-up lower extremity venous Doppler study recommended to assess for DVT. Patchy and linear densities within the base of the bilateral lower lobes and lingula are noted. These are nonspecific but could represent subsegmental atelectasis or a pneumonia. Trace bilateral pleural effusions. --Venous Doppler:Thrombus identified within the right peroneal veins consistent with a DVT. No DVT within the left lower extremity. Started on IV heparin She has been feeling much better since intravenous heparin Has had sharp pain at the back last night and CT scan of the abdomen pelvis was unremarkable The pain seems to from pleurisy secondary to pulmonary embolism She has been feeling much better this morning Her CBC has improved a lot with platelet count has been up to 124 Likely discharge tomorrow Likely due to go on Eliquis on discharge tomorrow Very high D-dimer CT scan of the abdomen pelvis and CTA have been negative Will need to have colonoscopy as an outpatient Possible sepsis SIRS Suspected pneumonia CTA chest as above UTI ruled out Reliability of cultures given patient being on antibiotics for the last 2 weeks Negative BioFire Serology for tickborne negative Check MRSA screen-Has been negative Blood cultures no growth to date DNA for Anaplasma, Babesia pending Urine culture grew lactobacillus species Empirically on vancomycin, Zosyn Vancomycin has been discontinued and will continue with intravenous Zosyn only Will start intravenous doxycycline to cover atypicals Get lesional mycoplasma titer Clinically much better likely discharge tomorrow Will continue oral Augmentin and doxycycline to finish the course of antibiotic Pancytopenia Peripheral smear reviewed--no abnormal cells If remains persistent, may need further evaluation with bone marrow biopsy CBC has been stable with improvement in the platelet Pancytopenia improved a lot Nausea, vomiting Transaminitis CBD dilatation --CT abdomen as above --Liver USD:Unremarkable exam status post cholecystectomy. Dilation of the common bile duct is likely on a postoperative basis. Correlate with serum bilirubin. Advance diet as tolerated Monitor LFTs Avoid hepatotoxic agents as able Appreciate GI input Hepatitis panel is pending Back pain Secondary to ankylosing spondylitis --Lumbar CT:No evidence of acute bony injury. Pain control on hydroxychloroquine, secukinumab, folic acid--Home medications currently held in setting of acute infection Electrolyte abnormalities Hypokalemia Hyponatremia Hypomagnesemia Hypophosphatemia Likely due to GI losses, poor oral intake Monitor and replete electrolytes as needed Nephrolithiasis Follow-up with urology as outpatient DVT Px: Heparin ggt CODE STATUS Full code Admission and Anticipated Discharge Date Admission Date: January 30, 2024 Subjective 02/02/2024 The patient was seen and examined in medical telemetry unit in presence of the family members She has been feeling much better today Denies any more fever and or chills No cough, hemoptysis or shortness of breath and no pain in the legs 02/03/2024 The patient was seen and examined in medical telemetry unit She has had back pain last night and underwent CAT scan of the abdomen pelvis which came out to be unremarkable This morning on examination and taking the history the pain seems to be from pleurisy She has had fever on more time Has been feeling much better this morning Review of Systems Review of Systems: All systems reviewed and are unremarkable except as noted below Physical Exam Constitutional: well developed, well nourished and + obese; not ill appearing Eyes: PERRL, conjunctivae normal, anicteric sclerae ENMT: external ear and nose normal, oropharynx normal Neck: trachea midline, no thyromegaly Respiratory: no respiratory distress Auscultation: lungs clear to auscultation bilaterally Cardiovascular: Rate/Rhythm: regular rate and regular rhythm; not tachycardic Heart Sounds: normal S1 and normal S2; no murmur Extremities: no edema Gastrointestinal (Abdomen): Inspection/Auscultation: normal bowel sounds; abdomen not distended Percussion/Palpation: abdomen soft; abdomen nontender Neurologic: normal touch/pain/proprioception and moves all extremities; no focal motor deficits Psychiatric: A+Ox3, euthymic affect Lymphatic: no cervical or axillary lymphadenopathy Results & Data Results & Data Vital Signs (Past 12 Hours) Vital Signs Temp Pulse Pulse Resp BP Pulse Ox O2 Del Method 02/03/24 13:45 36.9 C 02/03/24 13:00 92 H 02/03/24 11:39 38.3 C H 61 18 152/77 H 95 Room Air 02/03/24 07:45 36.8 C 75 18 109/67 93 Room Air 02/03/24 06:08 79 Laboratory Results Short CBC 02/03/24 Range/Units 06:30 WBC 4.30 L (4.8-10.8) K/ul Hgb 9.9 L (12.0-16.0) g/dl Hct 29.8 L (37.0-47.0) % Plt Count 124 L (130-400) K/uL BMP 02/03/24 06:30 Sodium 130 L Potassium 3.4 L Chloride 97 L Carbon Dioxide 28 BUN 6 Creatinine 0.77 Glucose 116 H Calcium 7.7 L Liver Function 02/03/24 Range/Units 06:30 Total Bilirubin 0.6 (0.2-1.0) mg/dl AST 111 H (13-39) U/L ALT 173 H (7-52) U/L Alkaline Phosphatase 90 (34-104) U/L Albumin 2.9 L (3.4-5.0) gm/dl Medications Administered Current Inpatient Medications Acetaminophen (Acetaminophen 325 Mg Tab) 650 mg PO Q4H PRN PRN Reason: fever Stop: 02/29/24 20:10 Last Admin: 02/03/24 11:10 Dose: 650 mg Albuterol (Albuterol Hfa 8 Gm Inhaler) 2 puffs INH Q4H PRN PRN Reason: Shortness Of Breath Stop: 02/29/24 21:27 Fluoxetine HCl (Fluoxetine Hcl 20 Mg Cap) 60 mg PO QAM [facility] Stop: 03/01/24 08:59 Last Admin: 02/03/24 08:23 Dose: 60 mg Folic Acid (Folic Acid 400 Mcg Tab) 800 mcg PO QAM [facility] Stop: 03/01/24 08:59 Last Admin: 02/03/24 08:23 Dose: 800 mcg Piperacillin Sod/Tazobactam (Sod 4.5 gm/ Dextrose) 100 mls @ 25 mls/hr IV Q8H [facility]; Protocol Stop: 02/09/24 20:59 Last Infusion: 02/03/24 13:18 Dose: Infused Heparin Sodium/Dextrose (Heparin Sodium/Dextrose) 25,000 units in 500 mls @ 31 mls/hr IV .Q16H8M [facility]; Protocol Stop: 03/02/24 16:29 Last Titration: 02/03/24 11:26 Dose: 1,550 units/hr, 31 mls/hr Doxycycline Hyclate 100 mg/ (Dextrose) 100 mls @ 50 mls/hr IV Q12H [facility] Stop: 02/09/24 18:29 Last Infusion: 02/03/24 07:42 Dose: Infused Promethazine HCl 12.5 mg/ (Sodium Chloride) 50.5 mls @ 202 mls/hr IV Q6H PRN PRN Reason: Nausea And Vomiting Stop: 03/04/24 00:42 Potassium Chloride/Sodium Chloride (Normal Saline W/20 Meq Kcl) 20 meq in 1,000 mls @ 100 mls/hr IV .Q10H [facility]; Protocol Stop: 02/03/24 15:19 Last Admin: 02/03/24 05:41 Dose: 100 mls/hr Levalbuterol HCl (Levalbuterol Hcl 0.63 Mg/3 Ml Neb) 0.63 mg NEB Q6H PRN; Protocol PRN Reason: Shortness Of Breath Or Wheezing Stop: 03/01/24 09:55 Last Admin: 02/02/24 09:32 Dose: 0.63 mg Lidocaine (Lidocaine 5% 1 Patch) 1 patch TD QAM [facility] Stop: 03/04/24 05:29 Last Admin: 02/03/24 05:41 Dose: 1 patch Loratadine (Loratadine 10 Mg Tab) 10 mg PO QAM [facility] Stop: 03/01/24 08:59 Last Admin: 02/03/24 08:23 Dose: 10 mg Magnesium Oxide (Magnesium Oxide 400 Mg Tab) 400 mg PO BID [facility] Stop: 03/03/24 20:59 Last Admin: 02/03/24 08:23 Dose: 400 mg Miscellaneous (Remove Lidoderm Patch) 1 each N/A PM [facility] Stop: 03/04/24 17:29 Oxycodone HCl (Oxycodone Hcl Ir 5 Mg Tab (Immediate Release)) 5 - 10 mg PO QID PRN PRN Reason: Pain Stop: 02/17/24 05:17 Last Admin: 02/03/24 11:13 Dose: 10 mg Tizanidine HCl (Tizanidine Hcl 4 Mg Tablet) 2 mg PO TID PRN PRN Reason: spasm Stop: 03/02/24 08:59 Last Admin: 02/03/24 05:07 Dose: 2 mg
[2024-02-03 15:08] LABS: ANTI-Xa, UFH(UnfractionatedHep 0.24 IU/ml (0.3-0.7)
--- NOTE | 2024-02-03 15:59 | Communication Note ---
<Statement entered by Cheryl Mason MD - 02/03/24 16:09> I agree with the documentation provided by KATHERYN Nguyen. The whole clinical picture is not yet fitting together for me. I do so recommend that heme and ID be consulted. Date of Service: February 03, 2024 GI following patient for elevated LFTs. T meryl today 0.6, AST 111, ALT 173. Continue to monitor LFTs. If worsening LFTs, consider MRCP for further evaluation. We will follow peripherally.
[2024-02-03 23:20] LABS: ANTI-Xa, UFH(UnfractionatedHep 0.31 IU/ml (0.3-0.7)
[2024-02-04 05:17] LABS: Babesia microti DNA Not Detected (Not Detected)
[2024-02-04 06:51] LABS: ANTI-Xa, UFH(UnfractionatedHep 0.33 IU/ml (0.3-0.7)
[2024-02-04 09:25] LABS: Hematocrit (blood only) 29.1 % (37.0-47.0); Hemoglobin 9.8 g/dl (12.0-16.0); Mean Corpuscular Hemoglobin 27.4 pg (25.0-34.0); Mean Corpuscular Hgb Conc 33.7 g/dL (32.0-36.0); Mean Corpuscular Volume 81.3 fL (80.0-100.0); Mean Platelet Volume 10.7 fL (9.4-12.4); Platelet Count 170 K/uL (130-400); RDW Coefficient of Variation 13.8 % (11.5-14.5); RDW Standard Deviation 40.7 fL (36.4-46.3); Red Blood Count 3.58 M/uL (4.20-5.40); White Blood Count 3.25 K/ul (4.8-10.8)
[2024-02-04 09:35] LABS: BUN Creatinine Ratio 8.1 (10-20); Est GFR (African American) 123.6 ml/min; Est GFR (Non-African American) 106.6 ml/min; Magnesium 1.8 mg/dl (1.7-2.4); Phosphorus 2.8 mg/dl (2.5-4.9); Potassium 3.9 mmol/L (3.5-5.1)
[2024-02-04 09:49] LABS: Basophils # (auto) 0.02 K/uL (0.00-0.20); Basophils % (auto) 0.6 %; Eosinophils # (auto) 0.21 K/uL (0.00-0.50); Eosinophils % (auto) 6.5 %; Immature Granulocytes # (auto) 0.01 K/uL (0.01-0.20); Immature Granulocytes % (auto) 0.3 %; Lymphocytes # (auto) 0.81 K/uL (1.20-3.40); Lymphocytes % (auto) 24.9 %; Monocytes # (auto) 0.21 K/uL (0.11-0.59); Monocytes % (auto) 6.5 %; Neutrophils # (auto) 1.99 K/uL (1.40-6.50); Neutrophils % (auto) 61.2 %; Ovalocytes 1+
--- NOTE | 2024-02-04 12:33 | Hospitalist Progress Note ---
Date of Service February 04, 2024 Assessment & Plan (1) Acute pulmonary embolism: Plan: 48 year old female with h/o ankylosing spondylitis who presented to the ED with ongoing symptoms of fever, N/V, dysuria for past 12 days. Recently completed course of cipro for a week followed by levaquin and bactrim for past 2 days but without improvement Acute right lower extremity DVT--POA Acute PE-Secondary to MTHFR mutation --CTA:Although difficult to confirm with certainty due to the motion artifact, there is suggestion of a filling defect within the left lower lobe segmental/subsegmental pulmonary artery which may represent a pulmonary embolus. Follow-up lower extremity venous Doppler study recommended to assess for DVT. Patchy and linear densities within the base of the bilateral lower lobes and lingula are noted. These are nonspecific but could represent subsegmental atelectasis or a pneumonia. Trace bilateral pleural effusions. --Venous Doppler:Thrombus identified within the right peroneal veins consistent with a DVT. No DVT within the left lower extremity. Started on IV heparin She has been feeling much better since intravenous heparin Has had sharp pain at the back last night and CT scan of the abdomen pelvis was unremarkable The pain seems to from pleurisy secondary to pulmonary embolism She has been feeling much better this morning Her CBC has improved a lot with platelet count has been up to 124 Likely discharge tomorrow Likely due to go on Eliquis on discharge Will start Eliquis from today and the patient will be discharged this afternoon Was advised to get an appointment with home theatre technician from her PCP Very high D-dimer CT scan of the abdomen pelvis and CTA have been negative Will need to have colonoscopy as an outpatient (2) Deep vein thrombosis (DVT) of right lower extremity: Plan: As above (3) History of MTHFR mutation: (4) UTI (urinary tract infection): Plan: Possible sepsis SIRS Suspected pneumonia CTA chest as above UTI ruled out Reliability of cultures given patient being on antibiotics for the last 2 weeks Negative BioFire Serology for tickborne negative Check MRSA screen-Has been negative Blood cultures no growth to date DNA for Anaplasma, Babesia pending Urine culture grew lactobacillus species Empirically on vancomycin, Zosyn Vancomycin has been discontinued and will continue with intravenous Zosyn only Will start intravenous doxycycline to cover atypicals Get Legionella and mycoplasma titers Clinically much better likely discharge tomorrow Will continue oral Augmentin and doxycycline to finish the course of antibiotic Antibiotic will be continued for a total of 10 days Pancytopenia Peripheral smear reviewed--no abnormal cells If remains persistent, may need further evaluation with bone marrow biopsy CBC has been stable with improvement in the platelet Pancytopenia improved a lot Pancytopenia is normalized (5) Hyponatremia: (6) Hypomagnesemia: (7) Hypokalemia: (8) Nephrolithiasis: Plan: May be the cause for back pain (9) Ankylosing spondylitis: Plan: May be the cause for back pain Plan Nausea, vomiting Transaminitis CBD dilatation --CT abdomen as above --Liver USD:Unremarkable exam status post cholecystectomy. Dilation of the common bile duct is likely on a postoperative basis. Correlate with serum bilirubin. Advance diet as tolerated Monitor LFTs Avoid hepatotoxic agents as able Appreciate GI input Hepatitis panel is pending Back pain Secondary to ankylosing spondylitis --Lumbar CT:No evidence of acute bony injury. Pain control on hydroxychloroquine, secukinumab, folic acid--Home medications currently held in setting of acute infection Electrolyte abnormalities Hypokalemia Hyponatremia Hypomagnesemia Hypophosphatemia Likely due to GI losses, poor oral intake Monitor and replete electrolytes as needed Nephrolithiasis Follow-up with urology as outpatient DVT Px: Heparin ggt CODE STATUS Full code Admission and Anticipated Discharge Date Admission Date: January 30, 2024 Subjective 02/02/2024 The patient was seen and examined in medical telemetry unit in presence of the family members She has been feeling much better today Denies any more fever and or chills No cough, hemoptysis or shortness of breath and no pain in the legs 02/03/2024 The patient was seen and examined in medical telemetry unit She has had back pain last night and underwent CAT scan of the abdomen pelvis which came out to be unremarkable This morning on examination and taking the history the pain seems to be from pleurisy She has had fever on more time Has been feeling much better this morning 02/04/2024 The patient was seen and examined in medical telemetry unit She still has some pain at the left lower back, worse with breathing but really manageable with pain medications She denies any other symptoms and wants to go home this afternoon Review of Systems Review of Systems: All systems reviewed and are unremarkable except as noted below Physical Exam Constitutional: well developed, well nourished and + obese; not ill appearing Eyes: PERRL, conjunctivae normal, anicteric sclerae ENMT: external ear and nose normal, oropharynx normal Neck: trachea midline, no thyromegaly Respiratory: no respiratory distress Auscultation: lungs clear to auscultation bilaterally Cardiovascular: Rate/Rhythm: regular rate and regular rhythm; not tachycardic Heart Sounds: normal S1 and normal S2; no murmur Extremities: no edema Gastrointestinal (Abdomen): Inspection/Auscultation: normal bowel sounds; abdomen not distended Percussion/Palpation: abdomen soft; abdomen nontender Musculoskeletal: Minimal localized tenderness lower left posterior chest wall Neurologic: normal touch/pain/proprioception and moves all extremities; no focal motor deficits Psychiatric: A+Ox3, euthymic affect Lymphatic: no cervical or axillary lymphadenopathy Results & Data Results & Data Vital Signs (Past 12 Hours) Vital Signs Temp Pulse Pulse Resp BP Pulse Ox O2 Del Method 02/04/24 11:46 36.6 C 79 18 91/54 L 97 Room Air 02/04/24 07:48 36.8 C 76 18 101/65 97 Room Air 02/04/24 07:36 Room Air 02/04/24 05:47 74 02/04/24 03:14 36.8 C 62 18 108/68 98 Room Air Laboratory Results Short CBC 02/04/24 Range/Units 08:54 WBC 3.25 L (4.8-10.8) K/ul Hgb 9.8 L (12.0-16.0) g/dl Hct 29.1 L (37.0-47.0) % Plt Count 170 (130-400) K/uL BMP 02/04/24 08:54 Sodium 136 Potassium 3.9 Chloride 103 Carbon Dioxide 29 BUN 5 L Creatinine 0.62 Glucose 102 H Calcium 8.0 L Medications Administered Current Inpatient Medications Acetaminophen (Acetaminophen 325 Mg Tab) 650 mg PO Q4H PRN PRN Reason: fever Stop: 02/29/24 20:10 Last Admin: 02/04/24 06:19 Dose: 650 mg Albuterol (Albuterol Hfa 8 Gm Inhaler) 2 puffs INH Q4H PRN PRN Reason: Shortness Of Breath Stop: 02/29/24 21:27 Fluoxetine HCl (Fluoxetine Hcl 20 Mg Cap) 60 mg PO QAM [facility] Stop: 03/01/24 08:59 Last Admin: 02/04/24 08:32 Dose: 60 mg Folic Acid (Folic Acid 400 Mcg Tab) 800 mcg PO QAM [facility] Stop: 03/01/24 08:59 Last Admin: 02/04/24 08:32 Dose: 800 mcg Piperacillin Sod/Tazobactam (Sod 4.5 gm/ Dextrose) 100 mls @ 25 mls/hr IV Q8H [facility]; Protocol Stop: 02/09/24 20:59 Last Admin: 02/04/24 09:13 Dose: 25 mls/hr Heparin Sodium/Dextrose (Heparin Sodium/Dextrose) 25,000 units in 500 mls @ 33 mls/hr IV .[id number] [facility]; Protocol Stop: 03/02/24 16:29 Last Admin: 02/04/24 09:15 Dose: 1,650 units/hr, 33 mls/hr Doxycycline Hyclate 100 mg/ (Dextrose) 100 mls @ 50 mls/hr IV Q12H [facility] Stop: 02/09/24 18:29 Last Infusion: 02/04/24 08:14 Dose: Infused Promethazine HCl 12.5 mg/ (Sodium Chloride) 50.5 mls @ 202 mls/hr IV Q6H PRN PRN Reason: Nausea And Vomiting Stop: 03/04/24 00:42 Levalbuterol HCl (Levalbuterol Hcl 0.63 Mg/3 Ml Neb) 0.63 mg NEB Q6H PRN; Protocol PRN Reason: Shortness Of Breath Or Wheezing Stop: 03/01/24 09:55 Last Admin: 02/02/24 09:32 Dose: 0.63 mg Lidocaine (Lidocaine 5% 1 Patch) [facility] Stop: 03/04/24 05:29 Last Admin: 02/04/24 08:30 Dose: 1 patch Loratadine (Loratadine 10 Mg Tab) 10 mg PO QAM [facility] Stop: 03/01/24 08:59 Last Admin: 02/04/24 08:32 Dose: 10 mg Magnesium Oxide (Magnesium Oxide 400 Mg Tab) 400 mg PO BID [facility] Stop: 03/03/24 20:59 Last Admin: 02/04/24 08:32 Dose: 400 mg Miscellaneous (Remove Lidoderm Patch) 1 each N/A PM [facility] Stop: 08/30/24 17:29 Last Admin: 02/03/24 16:41 Dose: 1 each Oxycodone HCl (Oxycodone Hcl Ir 5 Mg Tab (Immediate Release)) 5 - 10 mg PO QID PRN PRN Reason: Pain Stop: 02/17/24 05:17 Last Admin: 02/04/24 06:19 Dose: 10 mg Tizanidine HCl (Tizanidine Hcl 4 Mg Tablet) 2 mg PO TID PRN PRN Reason: spasm Stop: 03/02/24 08:59 Last Admin: 02/04/24 02:12 Dose: 2 mg
[2024-02-04] MEDS: APIXABAN 5 MG TABLET PO SCH (13:23)
[2024-02-04] MEDS ORDERED: AMOXICILLIN/CLAVULANATE 875 MG TAB PO SCH (17:00)
[2024-02-04] MEDS ORDERED: DOXYCYCLINE HYCLATE 100 MG CAP PO SCH (21:00)
--- NOTE | 2024-02-05 07:43 | Discharge Summary ---
Date of Service February 05, 2024 Admission HPI Per Admitting Provider 48 year old female with h/o ankylosing spondylitis who presented to the ED with ongoing symptoms of fever, N/V, dysuria for past 12 days. 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 States the Thursday prior, she had dysuria for which her colleague prescribed her cipro which she took for 7 days but she continued to have dysuria with intermittent fever, chills and N/V. She went to [facility] 2 days back where she was sent home with Levaquin and Bactrim, which did not help her symptoms and she presented to our ED today. States no IV antibiotics were given there and no blood or urine cultures were sent. In the ED, she was febrile to 39.5 but vitals otherwise stable. Procal 0.76. UA suggestive of UTI. Labs with multiple electrolyte abnormalities. CT with non obstructing bilateral nephrolithiasis. She was given IVF and cefepime and hospitalist service consulted for further management. She was sitting comfortably in bed during my encounter, somewhat sick. She was given po potassium for hypokalemia but she threw up. She does not smoke or drink alcohol. States she is fine with penicillins. She takes amoxicillin for dental prophylaxis, last used 6 months back and without any issues. Admission Exam Per Admitting Provider Physical Exam: General: Sitting comfortably in bed, not in distress, on room air HEENT: EOMI, TRACEY, MMM Chest: Clear breath sounds bilaterally, no wheezes or crackles CVS: Regular rate and rhythm, normal heart sounds, no murmur Abdomen: Soft, non tender, not distended, normal bowel sounds Neuro: Awake, alert, oriented, conversing well, non focal Extremities: No cyanosis, clubbing or edema No CVA tenderness Principal Diagnosis Acute pulmonary embolism, acute right lower extremity DVT, pneumonia, M TH F or mutation Discharge Exam Constitutional well developed, well nourished and + obese; not ill appearing Eyes PERRL, conjunctivae normal, anicteric sclerae ENMT external ear and nose normal, oropharynx normal Neck trachea midline, no thyromegaly Respiratory no respiratory distress Auscultation: lungs clear to auscultation bilaterally Cardiovascular Rate/Rhythm: regular rate and regular rhythm; not tachycardic Heart Sounds: normal S1 and normal S2; no murmur Extremities: no edema Gastrointestinal (Abdomen) Inspection/Auscultation: normal bowel sounds; abdomen not distended Percussion/Palpation: abdomen soft; abdomen nontender Neurologic normal touch/pain/proprioception and moves all extremities; no focal motor deficits Psychiatric A+Ox3, euthymic affect Lymphatic no cervical or axillary lymphadenopathy Discharge Data Allergies Allergy/AdvReac Type Severity Reaction Status Date / Time Penicillins Allergy Intermediate HIVES Verified 01/30/24 17:04 codeine AdvReac Intermediate CHEST PAIN Verified 01/30/24 17:04 Consultations 01/30/24 16:57 ED Decision to Admit Stat 01/31/24 12:27 Consult Gastroenterology Routine Ordered Studies 01/30/24 15:00 CT abd pelvis wo con Stat 01/30/24 15:05 CT head/brain wo con Stat 01/31/24 08:42 US liver Routine 02/01/24 12:41 CT angio chest PE protocol Urgent CT hip LT w con Urgent CT lumbar spine w con Urgent 02/01/24 14:11 US venous doppler LE BI Routine 02/03/24 00:43 CT Abd and Pelvis [CT abd pelvis wo con] Stat Hospital Course (1) Acute pulmonary embolism: 48 year old female with h/o ankylosing spondylitis who presented to the ED with ongoing symptoms of fever, N/V, dysuria for past 12 days. Recently completed course of cipro for a week followed by levaquin and bactrim for past 2 days but without improvement Acute right lower extremity DVT--POA Acute PE-Secondary to MTHFR mutation --CTA:Although difficult to confirm with certainty due to the motion artifact, there is suggestion of a filling defect within the left lower lobe segmental/subsegmental pulmonary artery which may represent a pulmonary embolus. Follow-up lower extremity venous Doppler study recommended to assess for DVT. Patchy and linear densities within the base of the bilateral lower lobes and lingula are noted. These are nonspecific but could represent subsegmental atelectasis or a pneumonia. Trace bilateral pleural effusions. --Venous Doppler:Thrombus identified within the right peroneal veins consistent with a DVT. No DVT within the left lower extremity. Started on IV heparin She has been feeling much better since intravenous heparin Has had sharp pain at the back last night and CT scan of the abdomen pelvis was unremarkable The pain seems to from pleurisy secondary to pulmonary embolism She has been feeling much better this morning Her CBC has improved a lot with platelet count has been up to 124 Likely discharge tomorrow Likely due to go on Eliquis on discharge Will start Eliquis from today and the patient will be discharged this afternoon Was advised to get an appointment with inoculator from her PCP Very high D-dimer CT scan of the abdomen pelvis and CTA have been negative Will need to have colonoscopy as an outpatient (2) Deep vein thrombosis (DVT) of right lower extremity: As above (3) History of MTHFR mutation: (4) UTI (urinary tract infection): Possible sepsis SIRS Suspected pneumonia CTA chest as above UTI ruled out Reliability of cultures given patient being on antibiotics for the last 2 weeks Negative BioFire Serology for tickborne negative Check MRSA screen-Has been negative Blood cultures no growth to date DNA for Anaplasma, Babesia pending Urine culture grew lactobacillus species Empirically on vancomycin, Zosyn Vancomycin has been discontinued and will continue with intravenous Zosyn only Will start intravenous doxycycline to cover atypicals Get Legionella and mycoplasma titers Clinically much better likely discharge tomorrow Will continue oral Augmentin and doxycycline to finish the course of antibiotic Antibiotic will be continued for a total of 10 days Pancytopenia Peripheral smear reviewed--no abnormal cells If remains persistent, may need further evaluation with bone marrow biopsy CBC has been stable with improvement in the platelet Pancytopenia improved a lot Pancytopenia is normalized (5) Hyponatremia: (6) Hypomagnesemia: (7) Hypokalemia: (8) Nephrolithiasis: May be the cause for back pain (9) Ankylosing spondylitis: May be the cause for back pain Plan Nausea, vomiting Transaminitis CBD dilatation --CT abdomen as above --Liver USD:Unremarkable exam status post cholecystectomy. Dilation of the common bile duct is likely on a postoperative basis. Correlate with serum bilirubin. Advance diet as tolerated Monitor LFTs Avoid hepatotoxic agents as able Appreciate GI input Hepatitis panel is pending Back pain Secondary to ankylosing spondylitis --Lumbar CT:No evidence of acute bony injury. Pain control on hydroxychloroquine, secukinumab, folic acid--Home medications currently held in setting of acute infection Electrolyte abnormalities Hypokalemia Hyponatremia Hypomagnesemia Hypophosphatemia Likely due to GI losses, poor oral intake Monitor and replete electrolytes as needed Nephrolithiasis Follow-up with urology as outpatient DVT Px: Heparin ggt CODE STATUS Full code Total Time Total Time Spent Total Time Spent (In Minutes): 40 minutes Discharge Plan Discharge Items Patient Disposition: Home - Self-Care Reason For Visit: FEVER, N/V, UTI Discharge Diagnosis: Acute pulmonary embolism, acute right lower extremity DVT, pneumonia, M TH F or mutation Condition on Discharge: Fair Activity: Resume your previous activity Non-emergency contact: Primary Care Provider Call non-emergency contact if: you have any medication questions and your symptoms worsen Follow-up/Referrals: Molly Krishna D.O. [Primary Care Provider] - (Please make an appointment with your PCP within 7 days) Diet: Heart Healthy Addtl Attending Provider Instructions: Please take precautions to avoid falls Finish the course of antibiotic Continue Eliquis as advised You will need to have a follow-up appointment with a inoculator Please make an appointment with your PCP within 7 days Pending Studies at Discharge: No Stand-Alone Forms: My [employer], Smoking Cessation Medications and DC Order Prescriptions: New doxycycline hyclate 100 mg Capsule 100 mg PO BID Qty: 14 0RF amoxicillin-pot clavulanate 875-125 mg Tablet 1 tab PO BIDM Qty: 10 0RF lidocaine 5 % Adhesive Patch,Medicated 1 patch transdermal QAM Qty: 30 0RF oxycodone 5 mg Tablet 5 mg PO QID PRN (Reason: pain) Qty: 15 0RF Eliquis 5 mg tablet 5 mg PO BID Qty: 72 0RF Rx Instructions: 2 tablets twice daily for a total of 13 doses and then 1 tablet daily to continue Continued loratadine 10 mg tablet 10 mg PO QAM fluoxetine 40 mg capsule See Rx Instructions .ROUTE .COMPLEX Patient Comments: takes with 20mg to equal 60mg Rx Instructions: Take 40mg w/ 20mg by mouth to equal 60mg once every morning. cholecalciferol (vitamin D3) 5,000 unit capsule 5,000 units PO QPM folic acid 800 mcg tablet 800 mcg PO QAM albuterol sulfate 90 mcg/actuation HFA aerosol inhaler 2 puffs inhalation Q4H PRN (Reason: Shortness Of Breath) secukinumab 150 mg/mL syringe 150 mg subcut MONTHLY Patient Comments: 150 mg once monthly Rx Instructions: 150 mg once monthly. fluoxetine 20 mg Tablet See Rx Instructions .ROUTE .COMPLEX Rx Instructions: Take 20mg w/ 40mg by mouth to equal 60mg once every morning. Ubrelvy 100 mg Tablet 100 mg PO UD PRN (Reason: Migraine Headache) Ajovy Autoinjector 225 mg/1.5 mL Auto-Injector 675 mg SUBCUT UD Patient Comments: takes every 3 months Rx Instructions: Pt does 3 injections at one time every 3 months hydroxychloroquine 200 mg tablet 200 mg PO BID tamsulosin 0.4 mg capsule 0.4 mg PO DAILY Discontinued sulfamethoxazole-trimethoprim 800-160 mg tablet 1 tab PO BID Rx Instructions: Start Date 01/29/24 x7 day supply, pt has taken 3 doses. levofloxacin 750 mg tablet 750 mg PO DAILY Rx Instructions: Start Date 01/29/24 x7 day supply, pt has taken 2 doses. Discharge Orders: Discharge Order (Routine); Ordered 02/04/24 Ordered By: Jade Looney/Other Patient Handouts: D-Dimer, Apixaban Oral Tablet, Oxycodone Oral Tablet, Sulfamethoxazole/Trimethoprim Oral Tablet, Lidocaine Medicated Patch, Doxycycline Oral Capsule, Understanding Deep Vein Thrombosis, Pulmonary Embolism, Anticoagulants, Urinary Tract Infections in Women, Pulmonary Embolism Dc Admission Data Admit Date/Time: 01/30/24 18:27 Attending Provider: Jade Goddard Admit Provider: Tae Ellison Primary Care Provider: Molly Krishna Other Providers: Tae Ellison; Aaron Manley; Daniel Lara; Gisela Hanna; Liza Schultz; Lydia Carrizales; Stephanie Kincaid; Ania Virk; Tor Morales; Isra Herndon; Laila Arnold; Clary Yin S; Maria R Prince; Lisa Barboza; Jessi Jeffrey; Jennifer Beyer; Muriel Garcia; Benito Carter; Tre Worley; Lina Pace; Sergio Hester Jr; Dwight Gamboa; Fermín Desir; Nitesh Miller; Shawn Hernandez; Cheryl Mason; Hiram Chance I; Ricardo Mcgarry Other Interventions: Discharge Summary Assessment (RN) Last Done: 02/04/24 16:36
== END 2024-02-04 15:30 | disposition home or self-care (01) | DRG 871 ==
LOC: ED 14:32 → SUATTDRO 18:27 → EDINP 18:27 → 2W 21:28